=== PATIENT | male | born 1965 | race Caucasian/White ===

== ENCOUNTER → 2018-08-06 13:01 | Outpatient (CLI) | payer OTHER, SELFPAY ==
[2018-08-06 14:25] LABS: Alanine Aminotransferase 34 IU/L (21-72); Albumin 4.2 g/dL (3.5-5.0); Albumin Globulin Ratio 1.4 (1.0-2.8); Alkaline Phosphatase 63 U/L (38-126); Aspartate Aminotransferase 20 IU/L (17-59); BUN Creatinine Ratio 19.1 (6-22); Bilirubin Total 0.9 mg/dL (0.2-1.3); Blood Urea Nitrogen 21 mg/dL (9-20); Calcium 8.9 mg/dL (8.4-10.2); Carbon Dioxide 26 mmol/L (22-32); Chloride 105 mmol/L (98-107); Estimated Glomerular Filt Rate > 60.0 mL/min (>60); Glucose 91 mg/dL (70-100); HEMOLYSIS < 15 (0-50); Potassium 3.7 mmol/L (3.4-5.1); Sodium 144 mmol/L (137-145); Total Protein 7.2 g/dL (6.3-8.2)
[2018-08-06 14:56] LABS: Prostate Specific Antigen Scrn 1.16 ng/mL (0.1-4.0)
[2018-08-06 14:58] LABS: TSH w/ Reflex to FT4 0.19 uIU/mL (0.47-4.68)
[2018-08-06 15:32] LABS: Free T4, Direct Thyroxine 1.08 ng/dL (0.78-2.19)
== END ==
PROVIDERS: Visit Provider Internal Medicine
DX: E11.9 Type 2 diabetes mellitus without complications (principal); I10 Essential (primary) hypertension; E03.9 Hypothyroidism, unspecified
CPT/HCPCS: 36415; 80053; 84439; 84443; G0103

== ENCOUNTER → 2018-11-24 13:24 | Outpatient (CLI) | payer OTHER, SELFPAY ==
[2018-11-24 15:01] LABS: Adenovirus F 40/41 Not Detected (Not Detect); Astrovirus Not Detected (Not Detect); Campylobacter Not Detected (Not Detect); Clostridium difficile toxin AB Not Detected (Not Detect); Cryptosporidium Not Detected (Not Detect); Cyclospora cayetanensis Not Detected (Not Detect); Entamoeba histolytica Not Detected (Not Detect); Enteroaggregative E.coli Not Detected (Not Detect); Enteropathogenic E.coli Not Detected (Not Detect); Enterotoxigenic E.coli It/st Not Detected (Not Detect); Giardia lamblia Not Detected (Not Detect); Norovirus GI/GII Not Detected (Not Detect); Plesiomonsa shigelloides Not Detected (Not Detect); Rotavirus A Not Detected (Not Detect); Salmonella Not Detected (Not Detect); Sapovirus Not Detected (Not Detect); Shiga-like toxin-prod E.coli Not Detected (Not Detect); Shigella/Enteroinvasive E.coli Not Detected (Not Detect); Vibrio Not Detected (Not Detect); Vibrio cholerae Not Detected (Not Detect); Yersinia enterocolitica Not Detected (Not Detect)
== END ==
PROVIDERS: Visit Provider Internal Medicine
DX: R19.7 Diarrhea, unspecified (principal); R10.84 Generalized abdominal pain
CPT/HCPCS: 87507

== ENCOUNTER 2018-11-28 14:56 | Emergency (ER) | payer OTHER, SELFPAY ==
[2018-11-28 15:06] VITALS: BP 127/73; PULSE 69; RESP 16; TEMP 36.4; O2SAT 100; BMI 29.0
--- NOTE | 2018-11-28 15:20 | DI.CT.S_ITS ---
PROCEDURE: CT ABDOMEN PELVIS W CON INDICATIONS: llq pain, lower left quadrant pain TECHNIQUE: After the administration of intravenous contrast, 5 mm thick sections acquired from the diaphragm to the symphysis. 5 mm coronal and sagittal reformats were acquired. For radiation dose reduction, the following was used: automated exposure control, adjustment of mA and/or kV according to patient size. COMPARISON: None. FINDINGS: Image quality: Excellent. ABDOMEN: Lung bases: Lung bases are clear. Chronic appearing right eighth, ninth, 10th and 11th rib fractures noted. Heart size is normal. Solid organs: Liver is normal in size and enhancement. Gallbladder is contracted, but within normal limits. Biliary system is non dilated. Pancreas enhances normally. Spleen is normal in size and enhancement. No adrenal nodules. Kidneys demonstrate normal size and enhancement, without hydronephrosis. 1.3 cm left renal cyst. Peritoneum and bowel: Bowel loops demonstrate normal wall thickness and caliber. No free fluid or air. The appendix is normal. Nodes and vessels: No retroperitoneal or mesenteric adenopathy by size criteria. Aorta and inferior vena cava are normal in size. Miscellaneous: Small fat containing umbilical hernia. PELVIS: Genitourinary: Bladder wall thickness is normal. Miscellaneous: No inguinal adenopathy. Small left fat containing inguinal hernia. Bones: No suspicious bony lesions. No vertebral body compression fractures. Spine degenerative disease and facet arthropathy noted. IMPRESSION: 1. Cause of left lower quadrant pain is not identified. 2. No free fluid or free air. 3. No dilated loops of bowel. 5. No renal stone or hydronephrosis. 5. The appendix is normal. Dictated by: Myah Angel MD, PhD on 11/28/2018 at 16:54 Approved by: Myah Angel MD, PhD on 11/28/2018 at 16:58
[2018-11-28] MEDS: KETOROLAC 60 MG/2 ML VIAL 15 MG IV (15:43)
[2018-11-28] MEDS: SODIUM CHLORIDE 0.9% 1,000 ML 1000 ML IV (15:43)
[2018-11-28] MEDS: ONDANSETRON 4 MG/2 ML INJ IV (15:44)
[2018-11-28 15:48] VITALS: BP 114/69; PULSE 61; O2SAT 98
[2018-11-28 15:48] LABS: Add Manual Diff / Slide Review NO; Basophils Absolute Auto 200 /uL (0-100); Basophils Percent Auto 2.6 % (0-2); Eosinophils Absolute Auto 200 /uL (0-450); Eosinophils Percent Auto 3.2 % (2-4); Hematocrit 38.7 % (41-53); Hemoglobin 12.6 g/dL (13.5-17.5); Lymphocytes Absolute Auto 1400 /uL (1100-4500); Lymphocytes Percent Auto 22.2 % (25-40); Mean Corpuscular HGB Conc 32.6 % (30-36); Monocytes Absolute Auto 400 /uL (0-900); Monocytes Percent Auto 6.4 % (3-14); Neutrophils Absolute Auto 4200 /uL (1500-7000); Neutrophils Percent Auto 65.6 % (50-75); Platelet Count 218 X10^3/uL (150-400); Red Cell Distribution Width 13.8 % (11.6-14.8); White Blood Cell Count 6.4 X10^3/uL (4.5-11.0)
[2018-11-28 15:58] LABS: Alanine Aminotransferase 31 IU/L (21-72); Albumin 4.2 g/dL (3.5-5.0); Albumin Globulin Ratio 1.4 (1.0-2.8); Alkaline Phosphatase 64 U/L (38-126); Aspartate Aminotransferase 22 IU/L (17-59); Bilirubin Total 0.4 mg/dL (0.2-1.3); Blood Urea Nitrogen 15 mg/dL (9-20); Calcium 8.5 mg/dL (8.4-10.2); Carbon Dioxide 24 mmol/L (22-32); Chloride 108 mmol/L (98-107); Estimated Glomerular Filt Rate > 60.0 mL/min (>60); Globulin 3.1 g/dL (1.7-4.1); Glucose 103 mg/dL (70-100); HEMOLYSIS < 15 (0-50); Lipase 175 U/L (23-300); Potassium 3.7 mmol/L (3.4-5.1); Sodium 142 mmol/L (137-145); Total Protein 7.3 g/dL (6.3-8.2)
--- NOTE | 2018-11-28 16:00 | ED.ABDPAIN ---
HPI - Abdominal Pain General Chief Complaint: Abdominal Pain Stated Complaint: severe abdominal cramping with diarrhea Time Seen by Provider: 11/28/18 15:03 Source: patient Mode of arrival: ambulatory Limitations: no limitations History of Present Illness HPI narrative: Patient is a 53-year-old male who presents with abdominal pain left lower quadrant for a week and a half. He has been having ongoing diarrhea for about a month. He actually had an outpatient stool sample this week which was negative. He denies any fever or chills. He feels nauseated. No vomiting. MD complaint: abdominal pain Onset (ago): week(s) Pain Consistency: intermittent Location: LLQ Severity: moderate Quality: cramping Radiation: none Migration to: no migration Relieving factors: nothing Exacerbating factors: nothing Related Data Home Medications Medication Instructions Recorded Confirmed levothyroxine 175 mcg tablet 175 mcg PO DAILY 10/28/18 10/28/18 lisinopril 2.5 mg tablet 2.5 mg PO DAILY 10/28/18 10/28/18 omeprazole 20 mg capsule,delayed 20 mg PO DAILY 10/28/18 10/28/18 release topiramate XR 50 mg 50 mg PO DAILY 10/28/18 10/28/18 capsule,extended release 24 hr Previous Rx's Medication Instructions Recorded dicyclomine 20 mg PO QID PRN #30 tab 11/28/18 Allergies Allergy/AdvReac Type Severity Reaction Status Date / Time No Known Drug Allergies Allergy Verified 11/28/18 15:06 Review of Systems Review of Systems GENERAL: Denies chills, fatigue, malaise, fever, sweats, travel HEENT: Denies sinus pain, ear pain, sore throat, difficulty swallowing, neck pain RESPIRATORY: Denies dyspnea, cough, wheezing, hemoptysis, sputum. CARDIOVASCULAR: Denies chest pain, palpitations, orthopnea, edema GASTROINTESTINAL: See HPI : Denies dysuria, frequency, incontinence, hematuria, urinary retention, flank pain. MUSCULOSKELETAL: Denies weakness, joint pain, or bony pain SKIN: No rash, no erythema, no pruritus NEUROLOGIC: Denies weakness, dizziness, headache, numbness, change in speech, confusion PSYCHIATRIC: No concerning psychosocial issues. 12 point review of systems is negative except for those stated above and HPI [facility] Social History Smoking Status: Former smoker Exam Initial Vital Signs Initial Vital Signs: Vital Signs Temperature 97.5 F L 11/28/18 15:06 Pulse Rate 69 11/28/18 15:06 Respiratory Rate 16 11/28/18 15:06 Blood Pressure 127/73 11/28/18 15:06 Pulse Oximetry 100 11/28/18 15:06 GENERAL: Alert oriented x3 HEENT: Head atraumatic,EOMI, pupils reactive CARDIOVASCULAR: Regular rate and rhythm without murmurs, rubs or gallops. RESPIRATORY: Breath sounds equal bilaterally, no wheezes rales or rhonchi. ABDOMEN: Soft, mild lower left lower quadrant pain no guarding or rebound EXTREMITIES: Normal range of motion, no clubbing or edema. Neurovascularly intact NEUROLOGICAL: Alert and oriented x4.Normal gait and speech. Cranial nerves II through XII grossly intact. SKIN: Warm, dry, no laceration, no petechiae, no rashes or lesions. Course Orders Ordered: ED Orders 11/28/18 15:20 CT abdomen pelvis w con Stat 11/28/18 15:40 Complete Blood Count AUTO DIFF Stat Comprehensive Metabolic Panel Stat Lipase Stat Sodium Chloride (Normal Saline 0.9%) 1,000 mls @ 1,000 mls/hr IV CONT FABIENNE Last Admin: 11/28/18 15:43 Dose: 1,000 mls/hr Discontinued Medications Ketorolac Tromethamine (Toradol) 15 mg IV NOW ONE Stop: 11/28/18 15:20 Last Admin: 11/28/18 15:43 Dose: 15 mg Ondansetron HCl (Zofran) 4 mg IV NOW ONE Stop: 11/28/18 15:20 Last Admin: 11/28/18 15:44 Dose: 4 mg Vital Signs - 8 hr 11/28/18 15:06 11/28/18 15:48 11/28/18 17:00 Temperature 97.5 F L Pulse Rate 69 61 63 Respiratory Rate 16 15 Blood Pressure 127/73 Blood Pressure [Right Arm] 114/69 115/70 Pulse Oximetry 100 98 100 MDM - Abdominal Pain Lab Data Attestation: I reviewed the patient's lab results. Result diagrams: 11/28/18 15:40 11/28/18 15:40 Lab Results 11/28/18 11/28/18 Range/Units 15:40 15:40 WBC 6.4 (4.5-11.0) X10^3/uL RBC 4.50 (4.5-5.9) X10^6/uL Hgb 12.6 L (13.5-17.5) g/dL Hct 38.7 L (41-53) % MCV 86.0 (80-100) fL MCH 28.0 (26-34) PG MCHC 32.6 (30-36) % RDW 13.8 (11.6-14.8) % Plt Count 218 (150-400) X10^3/uL Neut % (Auto) 65.6 (50-75) % Lymph % (Auto) 22.2 L (25-40) % [place] % (Auto) 6.4 (3-14) % Eos % (Auto) 3.2 (2-4) % Baso % (Auto) 2.6 H (0-2) % Neut # (Auto) 4200 (7919-0120) /uL Lymph # (Auto) 1400 (6936-0891) /uL [place] # (Auto) 400 (0-900) /uL Eos # (Auto) 200 (0-450) /uL Baso # (Auto) 200 H (0-100) /uL Sodium 142 (137-145) mmol/L Potassium 3.7 (3.4-5.1) mmol/L Chloride 108 H (98-107) mmol/L Carbon Dioxide 24 (22-32) mmol/L BUN 15 (9-20) mg/dL Creatinine 1.00 (0.66-1.25) mg/dL Estimated GFR > 60.0 (>60) mL/min BUN/Creatinine Ratio 15.0 (6-22) Glucose 103 H (70-100) mg/dL Calcium 8.5 (8.4-10.2) mg/dL Total Bilirubin 0.4 (0.2-1.3) mg/dL AST 22 (17-59) IU/L ALT 31 (21-72) IU/L Alkaline Phosphatase 64 (38-126) U/L Total Protein 7.3 (6.3-8.2) g/dL Albumin 4.2 (3.5-5.0) g/dL Globulin 3.1 (1.7-4.1) g/dL Albumin/Globulin Ratio 1.4 (1.0-2.8) Lipase 175 (23-300) U/L Imaging Data CT scan - abdomen: Radiologist's impression: PROCEDURE: CT ABDOMEN PELVIS W CON INDICATIONS: llq pain, lower left quadrant pain TECHNIQUE: After the administration of intravenous contrast, 5 mm thick sections acquired from the diaphragm to the symphysis. 5 mm coronal and sagittal reformats were acquired. For radiation dose reduction, the following was used: automated exposure control, adjustment of mA and/or kV according to patient size. COMPARISON: None. FINDINGS: Image quality: Excellent. ABDOMEN: Lung bases: Lung bases are clear. Chronic appearing right eighth, ninth, 10th and 11th rib fractures noted. Heart size is normal. Solid organs: Liver is normal in size and enhancement. Gallbladder is contracted, but within normal limits. Biliary system is non dilated. Pancreas enhances normally. Spleen is normal in size and enhancement. No adrenal nodules. Kidneys demonstrate normal size and enhancement, without hydronephrosis. 1.3 cm left renal cyst. Peritoneum and bowel: Bowel loops demonstrate normal wall thickness and caliber. No free fluid or air. The appendix is normal. Nodes and vessels: No retroperitoneal or mesenteric adenopathy by size criteria. Aorta and inferior vena cava are normal in size. Miscellaneous: Small fat containing umbilical hernia. PELVIS: Genitourinary: Bladder wall thickness is normal. Miscellaneous: No inguinal adenopathy. Small left fat containing inguinal hernia. Bones: No suspicious bony lesions. No vertebral body compression fractures. Spine degenerative disease and facet arthropathy noted. IMPRESSION: 1. Cause of left lower quadrant pain is not identified. 2. No free fluid or free air. 3. No dilated loops of bowel. 5. No renal stone or hydronephrosis. 5. The appendix is normal. Dictated by: Myah Angel MD, PhD on 11/28/2018 at 16:54 MDM Narrative Medical decision making narrative: No source of abdominal pain found. Patient has no leukocytosis. Pain definitely seems to come intermittently and spasm like. Will try course of Bentyl, I also recommend ammonium. Stool sample was negative for any infection. Follow-up with PCP. Discharge Plan Departure Patient Disposition: Home Clinical Impression: Abdominal pain Discharge Date/Time: 11/28/18 17:31 Instructions: DI for Abdominal Pain-Adult Activity Restrictions/Additional Instructions: *You have been diagnosed with abdominal pain *What to do: At this time stool sample is negative blood work is reassuring abdominal CT does not show any source for abdominal pain. May still require further outpatient evaluation. *Continue to take medications as directed Bentyl 20 mg 4 times a day for 1 week Tylenol 650 mg every 4-6 hours if needed for mild pain Imodium as directed for diarrhea *Follow up with your primary care provider in 2-3 days *Return to ER if you should have fever, increasing pain or any new, worsening or concerning symptoms Prescriptions: New dicyclomine 20 mg tablet 20 mg PO QID PRN (Reason: abdominal pain) Qty: 30 RF: 0 No Action levothyroxine 175 mcg tablet 175 mcg PO DAILY RF: 0 omeprazole 20 mg capsule,delayed release(DR/EC) 20 mg PO DAILY RF: 0 lisinopril 2.5 mg tablet 2.5 mg PO DAILY RF: 0 topiramate 50 mg capsule,extended release 24hr 50 mg PO DAILY RF: 0 Referrals: Sharad Muñoz MD [Physician] -
[2018-11-28 17:00] VITALS: BP 115/70; PULSE 63; RESP 15; O2SAT 100
[2018-11-28 17:31] VITALS: BP 115/70; PULSE 60; RESP 20; O2SAT 98
--- NOTE | 2018-12-02 11:13 | PC.NURSE ---
PT received normal saline started at 1543, completed at 1640, pt Received at total of 1000mls.
== END 2018-11-28 17:31 | disposition home or self-care (01) ==
PROVIDERS: Emergency Provider Emergency Medicine
DX: R10.9 Unspecified abdominal pain (principal)
CPT/HCPCS: 36591; 74177; 80053; 83690; 85025; 96361; 96374; 96375; 99282; 99284; J1885; J2405; Q9967

== ENCOUNTER → 2018-12-03 12:09 | Outpatient (CLI) | payer OTHER, SELFPAY ==
--- NOTE | 2018-12-03 | DI.RAD.S_ITS ---
PROCEDURE: XR CHEST 2V INDICATIONS: DYSPNEA TECHNIQUE: 2 views of the chest were acquired. COMPARISON: [facility], CT, CT ABDOMEN PELVIS W CON, 11/28/2018, 15:53. FINDINGS: Surgical changes and devices: Partial visualized cervical spine fixation hardware. Lungs and pleura: No pleural effusions or pneumothorax. Lungs are clear. Mediastinum: Mediastinal contours are normal. Heart size is normal. Bones and chest wall: No suspicious bony abnormalities. Right rib fractures as before. Soft tissues appear unremarkable. IMPRESSION: No acute disease. Dictated by: Mahin Tee M.D. on 12/03/2018 at 13:13 Approved by: Mahin Tee M.D. on 12/03/2018 at 13:24
== END ==
PROVIDERS: PCP Internal Medicine; Visit Provider Internal Medicine
DX: R06.00 Dyspnea, unspecified (principal)
CPT/HCPCS: 71046

== ENCOUNTER → 2018-12-14 13:24 | Outpatient (CLI) | payer OTHER, SELFPAY | PROVIDERS: PCP Internal Medicine; Visit Provider Internal Medicine | DX: K29.00 Acute gastritis without bleeding (principal) | CPT/HCPCS: 86677 ==

== ENCOUNTER → 2019-03-02 10:02 | Outpatient (CLI) | payer OTHER, SELFPAY ==
[2019-03-02 11:07] LABS: Add Manual Diff / Slide Review NO; Basophils Absolute Auto 100 /uL (0-100); Eosinophils Absolute Auto 200 /uL (0-450); Hematocrit 40.9 % (41-53); Hemoglobin 13.3 g/dL (13.5-17.5); Lymphocytes Absolute Auto 1800 /uL (1100-4500); Lymphocytes Percent Auto 29.7 % (25-40); Mean Corpuscular HGB Conc 32.4 % (30-36); Mean Corpuscular Hemoglobin 28.4 PG (26-34); Mean Corpuscular Volume 87.6 fL (80-100); Monocytes Absolute Auto 500 /uL (0-900); Monocytes Percent Auto 8.1 % (3-14); Neutrophils Absolute Auto 3400 /uL (1500-7000); Neutrophils Percent Auto 56.2 % (50-75); Platelet Count 186 X10^3/uL (150-400); Red Blood Cell Count 4.67 X10^6/uL (4.5-5.9); Red Cell Distribution Width 14.2 % (11.6-14.8); White Blood Cell Count 6.1 X10^3/uL (4.5-11.0)
[2019-03-02 11:13] LABS: Blood Urea Nitrogen 17 mg/dL (9-20); Calcium 9.3 mg/dL (8.4-10.2); Carbon Dioxide 27 mmol/L (22-32); Chloride 105 mmol/L (98-107); Estimated Glomerular Filt Rate > 60.0 mL/min (>60); Glucose 78 mg/dL (70-100); HEMOLYSIS < 15 (0-50); Sodium 141 mmol/L (137-145)
[2019-03-02 11:45] LABS: Free T3, Triiodothyronine Free 3.81 pg/mL (2.77-5.27)
[2019-03-02 11:58] LABS: Thyroid Stimulating Hormone 0.03 uIU/mL (0.47-4.68)
== END ==
PROVIDERS: PCP Internal Medicine; Visit Provider Internal Medicine
DX: E03.9 Hypothyroidism, unspecified (principal); K29.00 Acute gastritis without bleeding; I10 Essential (primary) hypertension
CPT/HCPCS: 36415; 80048; 84439; 84443; 84481; 85025

== ENCOUNTER → 2019-05-19 13:44 | Outpatient (CLI) | payer OTHER, SELFPAY ==
--- NOTE | 2019-05-19 | DI.RAD.S_ITS ---
PROCEDURE: XR KNEE LT 3V INDICATIONS: BILAT KNEE PAIN TECHNIQUE: 3 views of the knee were acquired. COMPARISON: None. FINDINGS: Bones: No fractures or dislocations. No suspicious bony lesions. Soft tissues: No joint effusion. No suspicious soft tissue calcifications. IMPRESSION: Normal for age, source of current left knee pain symptoms is not seen. Dictated by: Terrence Rosales M.D. on 05/19/2019 at 14:14 Approved by: Terrence Rosales M.D. on 05/19/2019 at 14:14
--- NOTE | 2019-05-19 | DI.RAD.S_ITS ---
PROCEDURE: XR KNEE RT 3V INDICATIONS: BILAT KNEE PAIN TECHNIQUE: 3 views of the knee were acquired. COMPARISON: None. FINDINGS: Bones: No fractures or dislocations. No suspicious bony lesions. Soft tissues: No joint effusion. No suspicious soft tissue calcifications. IMPRESSION: Normal for age, source of current knee pain symptoms is not seen. Dictated by: Terrence Rosales M.D. on 05/19/2019 at 14:14 Approved by: Terrence Rosales M.D. on 05/19/2019 at 14:14
== END ==
PROVIDERS: PCP Internal Medicine; Visit Provider Internal Medicine
DX: M25.562 Pain in left knee (principal); M25.561 Pain in right knee
CPT/HCPCS: 73562

== ENCOUNTER 2020-05-15 11:50 | Emergency (ER) | payer OTHER, SELFPAY ==
[2020-05-15] VITALS (13 sets, daily range): BP systolic 120–130; BP diastolic 74–86; PULSE 69–92; RESP 10–37; O2SAT 100; BMI 27.7
--- NOTE | 2020-05-15 13:51 | DI.RAD.S_ITS ---
PROCEDURE: XR CHEST 1V INDICATIONS: chest pain TECHNIQUE: One view of the chest was acquired. COMPARISON: [facility], CR, XR CHEST 2V, 12/03/2018, 12:38. FINDINGS: Surgical changes and devices: None. Lungs and pleura: Lungs are clear. No pleural effusions or pneumothorax. Mediastinum: Mediastinal contours appear normal. Heart size is normal. Bones and chest wall: No suspicious bony lesions. Multiple rib deformities on the right hemithorax are similar to the prior study. Overlying soft tissues appear unremarkable. IMPRESSION: Stable chest. No acute cardiopulmonary process is evident. Dictated by: David Nuno M.D. on 05/15/2020 at 13:24 Approved by: David Nuno M.D. on 05/15/2020 at 13:25
--- NOTE | 2020-05-15 13:59 | ED_ITS ---
HPI - Neuro Symptoms/Deficit <ARABELLA Haney - Last Filed: 05/15/20 21:00> General Chief Complaint: Neuro Symptoms/Deficit Stated Complaint: SOB, Foggy Head, Thinks Chemical Reaction Time Seen by Provider: 05/15/20 13:27 History of Present Illness HPI Narrative: 55yo male presents to the emergency department for shortness of breath, cough, and chest pain. 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 He was working today in a small bathroom with for ventilation when he felt dizzy and flushed, patient when outside to get fresh air and felt short of breath. He states he had a coughing fit and coughed up mucus. He did not cough up any blood. Patient was told to go home due to coughing. Once patient presented to the emergency department he developed a 6/10 sharp stabbing chest pain that was partially relieved when he laid on his left side. Patient states pain was worse with lying on his back. Denies any history of [place], states he had pericarditis approximately 20 years ago. Patient reports intermittent nausea. Patient denies any respiratory history. Patient denies any fevers, chills, vomiting, dizziness at this time, abdominal pain, or other concerns. On Anticoagulants: No Related Data Home Medications Medication Instructions Recorded Confirmed levothyroxine 150 mcg capsule 150 mcg PO DAILY 04/28/19 05/15/20 cyclobenzaprine 10 mg PO TID PRN 05/15/20 05/15/20 tramadol 50 - 100 mg PO TID PRN 05/15/20 05/15/20 Allergies Allergy/AdvReac Type Severity Reaction Status Date / Time No Known Drug Allergies Allergy Verified 04/28/19 10:09 Review of Systems <ARABELLA Haney - Last Filed: 05/15/20 21:00> Review of Systems Narrative: REVIEW OF SYSTEMS: GENERAL: Denies fever or chills. HENT: No head trauma. EYES: No vision changes. CARDIOVASCULAR: Reports chest pain, see HPI. RESPIRATORY: No shortness of breath or cough. GASTROINTESTINAL: No nausea or vomiting. GENITOURINARY: No flank pain or dysuria. MUSCULOSKELETAL: No pain, weakness, or deformities. INTEGUMENTARY: No rash, lesions, or pruritus. NEURO: No numbness or tingling. PSYCH: No behavior or mood changes. Patient History <ARABELLA Haney - Last Filed: 05/15/20 21:00> Medical History Chronic back pain (Acute) Chronic knee pain (Acute) Fatigue (Chronic ~10/2018) Flexor tendon laceration of right hand with open wound (Inactive) Laceration of finger of right hand (Inactive) Obstructive sleep apnea (Chronic) Social History Smoking Status: Former smoker Smoking Status: Former smoker alcohol intake frequency: 0-2 drinks per day Substance Use Type: does not use Exam <ARABELLA Haney - Last Filed: 05/15/20 21:00> Initial Vital Signs Initial Vital Signs: Vital Signs Pulse Rate 92 H 05/15/20 11:58 Respiratory Rate 18 05/15/20 11:58 Blood Pressure 120/86 05/15/20 11:58 Pulse Oximetry 100 05/15/20 11:58 PHYSICAL EXAMINATION: GENERAL: Well groomed, alert, and cooperative. Answers questions promptly and appropriately. Vital signs noted. HENT: Normocephalic, atraumatic. Ear canals patent. Oral mucosa is pink and moist. EYES: Conjunctiva pink, sclera white, no periorbital swelling. CHEST: Normal to inspection and without deformities. CARDIOVASCULAR: S1 and S2 sounds normal. Regular rate and rhythm, no murmurs, clicks, or bruits. No pedal edema. RESPIRATORY: Normal respiratory rate, trachea midline, airway patent. No stridor, nasal flaring or accessory muscle use. Lungs are clear in all holly without wheeze, rhonchi, or crackles. No cough observed. Patient able to ambulate without respiratory distress. GASTROINTESTINAL: Bowel sounds normoactive. Abdomen is soft and non-tender. No organomegaly. MUSCULOSKELETAL: Normal gait and coordination. Equal tone and mass bilaterally. EXTREMITIES: CMS intact. Moves all extremities. SKIN: Warm, dry, soft, appropriate color for ethnicity. No lesions, rashes, or wounds. NEURO: Alert and Oriented X 3. Good coordination. No ataxia, or sensory d eficits, or cognitive issues. PSYCH: Appropriate affect and mood. <Dara Sanchez MD - Last Filed: 06/02/20 18:05> Initial Vital Signs Initial Vital Signs: Vital Signs Pulse Rate 92 H 05/15/20 11:58 Respiratory Rate 18 05/15/20 11:58 Blood Pressure 120/86 05/15/20 11:58 Pulse Oximetry 100 05/15/20 11:58 Course <Rashmi Rushing [employer] CHIEF - Last Filed: 05/15/20 21:00> Course Course Narrative: Poison control was consulted via nursing, recommended supportive care and oxygen. Oxygen was placed on patient, patient reported he immediately felt better within a few minutes. With an five to ten minutes, chest pain completely resolved, patient no longer felt short of breath. Upon discharge, patient was able to ambulate without shortness of breath or feelings of dizziness. Orders Ordered: Discontinued Medications Ondansetron HCl (Zofran) 4 mg IV NOW ONE Stop: 05/15/20 14:03 Last Admin: 05/15/20 14:21 Dose: 4 mg Documented by: ESTEBAN Aguirre Consultation #1: Patient staffed with Dr. Sanchez discussed test, test results, and plan of care. Vital Signs Vital signs: Vital Signs - 8 hr 05/15/20 13:51 05/15/20 14:00 05/15/20 14:15 Pulse Rate 73 70 72 Respiratory Rate 24 23 33 H Blood Pressure 127/82 Pulse Oximetry 100 100 100 05/15/20 14:30 05/15/20 14:45 05/15/20 15:00 Pulse Rate 70 71 72 Respiratory Rate 27 H 24 10 L Blood Pressure 130/74 Pulse Oximetry 100 100 100 05/15/20 15:15 05/15/20 15:30 05/15/20 15:45 Pulse Rate 69 72 78 Respiratory Rate 37 H 22 15 Blood Pressure Pulse Oximetry 100 100 100 05/15/20 16:00 05/15/20 16:12 05/15/20 16:47 Pulse Rate 76 75 80 Respiratory Rate 22 24 26 H Blood Pressure 129/81 123/85 Pulse Oximetry 100 100 100 <Dara Sanchez MD - Last Filed: 06/02/20 18:05> Orders Ordered: Discontinued Medications Ondansetron HCl (Zofran) 4 mg IV NOW ONE Stop: 05/15/20 14:03 Last Admin: 05/15/20 14:21 Dose: 4 mg Documented by: ESTEBAN Vital Signs Vital signs: Vital Signs - 8 hr 05/15/20 13:51 05/15/20 14:00 05/15/20 14:15 Pulse Rate 73 70 72 Respiratory Rate 24 23 33 H Blood Pressure 127/82 Pulse Oximetry 100 100 100 05/15/20 14:30 05/15/20 14:45 05/15/20 15:00 Pulse Rate 70 71 72 Respiratory Rate 27 H 24 10 L Blood Pressure 130/74 Pulse Oximetry 100 100 100 05/15/20 15:15 05/15/20 15:30 05/15/20 15:45 Pulse Rate 69 72 78 Respiratory Rate 37 H 22 15 Blood Pressure Pulse Oximetry 100 100 100 05/15/20 16:00 05/15/20 16:12 05/15/20 16:47 Pulse Rate 76 75 80 Respiratory Rate 22 24 26 H Blood Pressure 129/81 123/85 Pulse Oximetry 100 100 100 MDM - Neuro Symptoms/Deficit <ARABELLA Haney - Last Filed: 05/15/20 21:00> Medical Records Attestation: I reviewed the patient's medical records. Lab Data Attestation: I reviewed the patient's lab results. Result diagrams: 05/15/20 13:50 05/15/20 13:50 Labs: Lab Results 05/15/20 05/15/20 05/15/20 Range/Units 13:50 13:50 13:50 WBC 7.4 (4.5-11.0) X10^3/uL RBC 4.44 L (4.5-5.9) X10^6/uL Hgb 12.8 L (13.5-17.5) g/dL Hct 38.2 L (41-53) % MCV 86.1 (80-100) fL MCH 28.8 (26-34) PG MCHC 33.5 (30-36) % RDW 14.2 (11.6-14.8) % Plt Count 183 (150-400) X10^3/uL Neut % (Auto) 56.0 (50-75) % Lymph % (Auto) 28.7 (25-40) % [place] % (Auto) 8.8 (3-14) % Eos % (Auto) 4.2 H (2-4) % Baso % (Auto) 2.3 H (0-2) % Neut # (Auto) 4100 (4775-7027) /uL Lymph # (Auto) 2100 (7181-8752) /uL [place] # (Auto) 600 (0-900) /uL Eos # (Auto) 300 (0-450) /uL Baso # (Auto) 200 H (0-100) /uL PT 12.3 (10.1-12.7) SECONDS INR 1.1 (0.9-1.3) APTT 33 (26.4-36.2) SECONDS Sodium 140 (137-145) mmol/L Potassium 3.8 (3.4-5.1) mmol/L Chloride 107 (98-107) mmol/L Carbon Dioxide 25 (22-32) mmol/L BUN 18 (9-20) mg/dL Creatinine 0.90 (0.66-1.25) mg/dL Estimated GFR > 60.0 (>60) mL/min BUN/Creatinine Ratio 20.0 (6-22) Glucose 94 (70-100) mg/dL Calcium 9.5 (8.4-10.2) mg/dL Total Bilirubin 0.4 (0.2-1.3) mg/dL AST 19 (17-59) IU/L ALT 16 (<50) IU/L Alkaline Phosphatase 72 (38-126) U/L Total Creatine Kinase 100 (55-170) U/L CK-MB (CK-2) TNP CK-MB (CK-2) Rel Index TNP Troponin I < 0.012 (0.01-0.034) ng/mL NT-Pro-B Natriuret Pep (<125) pg/mL Total Protein 7.7 (6.3-8.2) g/dL Albumin 4.4 (3.5-5.0) g/dL Globulin 3.3 (1.7-4.1) g/dL Albumin/Globulin Ratio 1.3 (1.0-2.8) Lipase 153 (23-300) U/L 05/15/20 05/15/20 Range/Units 13:50 15:54 WBC (4.5-11.0) X10^3/uL RBC (4.5-5.9) X10^6/uL Hgb (13.5-17.5) g/dL Hct (41-53) % MCV (80-100) fL MCH (26-34) PG MCHC (30-36) % RDW (11.6-14.8) % Plt Count (150-400) X10^3/uL Neut % (Auto) (50-75) % Lymph % (Auto) (25-40) % [place] % (Auto) (3-14) % Eos % (Auto) (2-4) % Baso % (Auto) (0-2) % Neut # (Auto) (1323-1623) /uL Lymph # (Auto) (4721-5791) /uL [place] # (Auto) (0-900) /uL Eos # (Auto) (0-450) /uL Baso # (Auto) (0-100) /uL PT (10.1-12.7) SECONDS INR (0.9-1.3) APTT (26.4-36.2) SECONDS Sodium (137-145) mmol/L Potassium (3.4-5.1) mmol/L Chloride (98-107) mmol/L Carbon Dioxide (22-32) mmol/L BUN (9-20) mg/dL Creatinine (0.66-1.25) mg/dL Estimated GFR (>60) mL/min BUN/Creatinine Ratio (6-22) Glucose (70-100) mg/dL Calcium (8.4-10.2) mg/dL Total Bilirubin (0.2-1.3) mg/dL AST (17-59) IU/L ALT (<50) IU/L Alkaline Phosphatase (38-126) U/L Total Creatine Kinase (55-170) U/L CK-MB (CK-2) CK-MB (CK-2) Rel Index Troponin I < 0.012 (0.01-0.034) ng/mL NT-Pro-B Natriuret Pep 24 (<125) pg/mL Total Protein (6.3-8.2) g/dL Albumin (3.5-5.0) g/dL Globulin (1.7-4.1) g/dL Albumin/Globulin Ratio (1.0-2.8) Lipase (23-300) U/L Imaging Data Chest x-ray: Radiologist's Impression: [address] [address] XRay Report Signed Patient: Maxim Garcia WMR#: [id number] : 1965Acct:[id number] Age/Sex: 55 / MDate of Service: 05/15/20 Loc: ED Accession Number: [id number] Procedure: XR chest 1V Ordering Provider: Rashmi Rushing PROCEDURE: XR CHEST 1V INDICATIONS: chest pain TECHNIQUE: One view of the chest was acquired. COMPARISON: [facility], XR CHEST 2V, 12/03/2018, 12:38. FINDINGS: Surgical changes and devices: None. Lungs and pleura: Lungs are clear. No pleural effusions or pneumothorax. Mediastinum: Mediastinal contours appear normal. Heart size is normal. Bones and chest wall: No suspicious bony lesions. Multiple rib deformities on the right hemithorax are similar to the prior study. Overlying soft tissues appear unremarkable. IMPRESSION: Stable chest. No acute cardiopulmonary process is evident. Dictated by: David Nuno M.D. on 05/15/2020 at 13:24 Approved by: David Nuno M.D. on 05/15/2020 at 13:25 ECG Data Interpretation: 1203: Normal sinus rhythm, rate 79, NV interval 172, QTC 396. No ST elevation or ST depression. No T-wave abnormality. EKG also viewed by Dr. Sanchez per protocol. 1540: Normal sinus rhythm, rate 68, NV interval 178, QTC [address] elevation or ST depression. No ectopy. No T-wave abnormality. EKG also viewed Dr. Sanchez per protocol. 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 I suspect patient's symptoms are most likely caused by chemical inhalation given chemical exposure, patient was not wearing a mask, and was working in a low ventilation room. Patient also reported immediate improvement after administration of oxygen. Less likely ACS as serial troponins and EKGs were non-remarkable, chest x-ray without abnormality. Less likely infection due to clear lung sounds, no wheezing, no pneumonia seen on x-ray, normal white count, afebrile, non tachycardic. Less likely reactive airway disease due to lack of wheezing, improvement with oxygen only. Poison control was consulted which recommend supportive care as well. Patient was encouraged to follow up with his PCP in the next 1-2 days for further evaluation. He was encouraged to wear a mask and work in a well ventilated area when working with chemicals. Work note was given per request. Strict return precautions given for new or worsening symptoms. Patient agreed to plan of care verbalized understanding. <Dara Sanchez MD - Last Filed: 06/02/20 18:05> Lab Data Labs: Lab Results 05/15/20 05/15/20 05/15/20 Range/Units 13:50 13:50 13:50 WBC 7.4 (4.5-11.0) X10^3/uL RBC 4.44 L (4.5-5.9) X10^6/uL Hgb 12.8 L (13.5-17.5) g/dL Hct 38.2 L (41-53) % MCV 86.1 (80-100) fL MCH 28.8 (26-34) PG MCHC 33.5 (30-36) % RDW 14.2 (11.6-14.8) % Plt Count 183 (150-400) X10^3/uL Neut % (Auto) 56.0 (50-75) % Lymph % (Auto) 28.7 (25-40) % [place] % (Auto) 8.8 (3-14) % Eos % (Auto) 4.2 H (2-4) % Baso % (Auto) 2.3 H (0-2) % Neut # (Auto) 4100 (8102-3100) /uL Lymph # (Auto) 2100 (0392-6985) /uL [place] # (Auto) 600 (0-900) /uL Eos # (Auto) 300 (0-450) /uL Baso # (Auto) 200 H (0-100) /uL PT 12.3 (10.1-12.7) SECONDS INR 1.1 (0.9-1.3) APTT 33 (26.4-36.2) SECONDS Sodium 140 (137-145) mmol/L Potassium 3.8 (3.4-5.1) mmol/L Chloride 107 (98-107) mmol/L Carbon Dioxide 25 (22-32) mmol/L BUN 18 (9-20) mg/dL Creatinine 0.90 (0.66-1.25) mg/dL Estimated GFR > 60.0 (>60) mL/min BUN/Creatinine Ratio 20.0 (6-22) Glucose 94 (70-100) mg/dL Calcium 9.5 (8.4-10.2) mg/dL Total Bilirubin 0.4 (0.2-1.3) mg/dL AST 19 (17-59) IU/L ALT 16 (<50) IU/L Alkaline Phosphatase 72 (38-126) U/L Total Creatine Kinase 100 (55-170) U/L CK-MB (CK-2) TNP CK-MB (CK-2) Rel Index TNP Troponin I < 0.012 (0.01-0.034) ng/mL NT-Pro-B Natriuret Pep (<125) pg/mL Total Protein 7.7 (6.3-8.2) g/dL Albumin 4.4 (3.5-5.0) g/dL Globulin 3.3 (1.7-4.1) g/dL Albumin/Globulin Ratio 1.3 (1.0-2.8) Lipase 153 (23-300) U/L 05/15/20 05/15/20 Range/Units 13:50 15:54 WBC (4.5-11.0) X10^3/uL RBC (4.5-5.9) X10^6/uL Hgb (13.5-17.5) g/dL Hct (41-53) % MCV (80-100) fL MCH (26-34) PG MCHC (30-36) % RDW (11.6-14.8) % Plt Count (150-400) X10^3/uL Neut % (Auto) (50-75) % Lymph % (Auto) (25-40) % [place] % (Auto) (3-14) % Eos % (Auto) (2-4) % Baso % (Auto) (0-2) % Neut # (Auto) (8273-3333) /uL Lymph # (Auto) (9705-1501) /uL [place] # (Auto) (0-900) /uL Eos # (Auto) (0-450) /uL Baso # (Auto) (0-100) /uL PT (10.1-12.7) SECONDS INR (0.9-1.3) APTT (26.4-36.2) SECONDS Sodium (137-145) mmol/L Potassium (3.4-5.1) mmol/L Chloride (98-107) mmol/L Carbon Dioxide (22-32) mmol/L BUN (9-20) mg/dL Creatinine (0.66-1.25) mg/dL Estimated GFR (>60) mL/min BUN/Creatinine Ratio (6-22) Glucose (70-100) mg/dL Calcium (8.4-10.2) mg/dL Total Bilirubin (0.2-1.3) mg/dL AST (17-59) IU/L ALT (<50) IU/L Alkaline Phosphatase (38-126) U/L Total Creatine Kinase (55-170) U/L CK-MB (CK-2) CK-MB (CK-2) Rel Index Troponin I < 0.012 (0.01-0.034) ng/mL NT-Pro-B Natriuret Pep 24 (<125) pg/mL Total Protein (6.3-8.2) g/dL Albumin (3.5-5.0) g/dL Globulin (1.7-4.1) g/dL Albumin/Globulin Ratio (1.0-2.8) Lipase (23-300) U/L Discharge Plan Departure Patient Disposition: Home Clinical Impression: Exposure to chemical inhalation Discharge Date/Time: 05/15/20 16:48 Activity Restrictions/Additional Instructions: Thank you for entrusting me with your care today. As discussed, your chest x- ray, EKG, and laboratory work are non-remarkable. I suspect that your symptoms are most likely caused from inhalation of chemicals. I recommend wearing a chemical approved mask when working with chemicals. 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 It is important that you follow-up with your primary care provider in the next 1-2 weeks for further evaluation as you can developed later inflammation from in halation of these chemicals. Please given a call today or tomorrow to schedule an appointment. Return emergency department for any new or worsening symptoms such as chest pain, shortness of breath, syncope, dizziness, or any other concerns. Prescriptions: No Action cyclobenzaprine 10 mg Tablet 10 mg PO TID PRN (Reason: Back Pain) RF: 0 tramadol 50 mg tablet 50 - 100 mg PO TID PRN (Reason: Pain (Scale Score 7-10)) RF: 0 levothyroxine 150 mcg capsule 150 mcg PO DAILY RF: 0 Referrals: Sharad Muñoz MD [Primary Care Provider] - Stand Alone Forms: Work Release Note <Dara Sanchez MD - Last Filed: 06/02/20 18:05> Cosign ED Attending Cosignature Attestation: I was immediately available in the department for consultation throughout this patient's visit. I agree with documentation as above. Dara Sanchez MD
[2020-05-15 14:03] LABS: Add Manual Diff / Slide Review NO; Basophils Absolute Auto 200 /uL (0-100); Basophils Percent Auto 2.3 % (0-2); Eosinophils Absolute Auto 300 /uL (0-450); Eosinophils Percent Auto 4.2 % (2-4); Hematocrit 38.2 % (41-53); Hemoglobin 12.8 g/dL (13.5-17.5); Lymphocytes Absolute Auto 2100 /uL (1100-4500); Lymphocytes Percent Auto 28.7 % (25-40); Mean Corpuscular HGB Conc 33.5 % (30-36); Mean Corpuscular Hemoglobin 28.8 PG (26-34); Mean Corpuscular Volume 86.1 fL (80-100); Monocytes Absolute Auto 600 /uL (0-900); Monocytes Percent Auto 8.8 % (3-14); Neutrophils Absolute Auto 4100 /uL (1500-7000); Platelet Count 183 X10^3/uL (150-400); Red Blood Cell Count 4.44 X10^6/uL (4.5-5.9); Red Cell Distribution Width 14.2 % (11.6-14.8); White Blood Cell Count 7.4 X10^3/uL (4.5-11.0)
[2020-05-15 14:15] LABS: INR 1.1 (0.9-1.3); Prothrombin Time 12.3 SECONDS (10.1-12.7)
[2020-05-15 14:18] LABS: PTT Partial Thromboplastin Tim 33 SECONDS (26.4-36.2)
[2020-05-15] MEDS: ONDANSETRON 4 MG/2 ML INJ IV (14:21)
[2020-05-15 14:22] LABS: Alanine Aminotransferase 16 IU/L (<50); Albumin 4.4 g/dL (3.5-5.0); Albumin Globulin Ratio 1.3 (1.0-2.8); Alkaline Phosphatase 72 U/L (38-126); Aspartate Aminotransferase 19 IU/L (17-59); Bilirubin Total 0.4 mg/dL (0.2-1.3); Blood Urea Nitrogen 18 mg/dL (9-20); Calcium 9.5 mg/dL (8.4-10.2); Carbon Dioxide 25 mmol/L (22-32); Chloride 107 mmol/L (98-107); Creatine Kinase 100 U/L (55-170); Estimated Glomerular Filt Rate > 60.0 mL/min (>60); Globulin 3.3 g/dL (1.7-4.1); Glucose 94 mg/dL (70-100); HEMOLYSIS < 15 (0-50); Lipase 153 U/L (23-300); Sodium 140 mmol/L (137-145); Total Protein 7.7 g/dL (6.3-8.2)
[2020-05-15 14:23] LABS: Potassium 3.8 mmol/L (3.4-5.1)
[2020-05-15 14:30] LABS: NT-proBNP (BNP-Adult 18+) 24 pg/mL (<125)
[2020-05-15 14:33] LABS: Troponin I < 0.012 ng/mL (0.01-0.034)
--- NOTE | 2020-05-15 15:28 | PC.NURSE ---
called poison control and verified chemical exposure. They recommended supportive care. If lung sounds were clear then no chest xray needed. Pt should be monitored for chemical exposure pneumonititis. Lung sounds were clear bilaterally upon auscultation. Rashmi Rushing was notified.
[2020-05-15 16:24] LABS: Troponin I < 0.012 ng/mL (0.01-0.034)
== END 2020-05-15 16:48 | disposition home or self-care (01) ==
PROVIDERS: Emergency Provider Nurse Practitioner; PCP Internal Medicine
DX: Z57.5 Occupational exposure to toxic agents in other industries (principal); R07.9 Chest pain, unspecified; R06.02 Shortness of breath; Y99.0 Civilian activity done for income or pay
CPT/HCPCS: 36415; 71045; 80053; 82550; 83690; 83880; 84484; 85025; 85610; 85730; 93005; 96374; 99284; J2405

== ENCOUNTER → 2020-06-12 07:32 | Outpatient (CLI) | payer OTHER, SELFPAY ==
[2020-06-12 08:00] LABS: Add Manual Diff / Slide Review NO; Basophils Absolute Auto 200 /uL (0-100); Basophils Percent Auto 2.2 % (0-2); Eosinophils Absolute Auto 300 /uL (0-450); Eosinophils Percent Auto 4.4 % (2-4); Hematocrit 39.9 % (41-53); Hemoglobin 13.2 g/dL (13.5-17.5); Lymphocytes Absolute Auto 2400 /uL (1100-4500); Lymphocytes Percent Auto 30.8 % (25-40); Mean Corpuscular Hemoglobin 28.5 PG (26-34); Mean Corpuscular Volume 86.3 fL (80-100); Monocytes Absolute Auto 500 /uL (0-900); Monocytes Percent Auto 7.1 % (3-14); Neutrophils Absolute Auto 4300 /uL (1500-7000); Neutrophils Percent Auto 55.5 % (50-75); Platelet Count 187 X10^3/uL (150-400); Red Blood Cell Count 4.63 X10^6/uL (4.5-5.9); Red Cell Distribution Width 13.7 % (11.6-14.8); White Blood Cell Count 7.7 X10^3/uL (4.5-11.0)
[2020-06-12 08:15] LABS: Hemoglobin A1C% w Est Avg Glu 5.7 % (4.0-6.0)
[2020-06-12 08:18] LABS: Alanine Aminotransferase 21 IU/L (<50); Albumin 4.7 g/dL (3.5-5.0); Albumin Globulin Ratio 1.3 (1.0-2.8); Alkaline Phosphatase 84 U/L (38-126); Aspartate Aminotransferase 22 IU/L (17-59); BUN Creatinine Ratio 17.8 (6-22); Bilirubin Total 0.5 mg/dL (0.2-1.3); Blood Urea Nitrogen 19 mg/dL (9-20); Calcium 9.2 mg/dL (8.4-10.2); Carbon Dioxide 27 mmol/L (22-32); Chloride 108 mmol/L (98-107); Cholesterol 158 mg/dL (140-199); Estimated Glomerular Filt Rate > 60.0 mL/min (>60); Globulin 3.5 g/dL (1.7-4.1); Glucose 113 mg/dL (70-100); HDL Cholesterol 46 mg/dL (40-60); HEMOLYSIS < 15 (0-50); LDL Cholesterol Calculated 97 mg/dL (<100); Potassium 4.3 mmol/L (3.4-5.1); Sodium 142 mmol/L (137-145); Total Protein 8.2 g/dL (6.3-8.2); Triglycerides 76 mg/dL (35-150)
[2020-06-12 08:49] LABS: TSH w/ Reflex to FT4 0.14 uIU/mL (0.47-4.68)
[2020-06-12 09:54] LABS: Free T4, Direct Thyroxine 1.41 ng/dL (0.78-2.19)
== END ==
PROVIDERS: PCP Internal Medicine; Referring Provider Internal Medicine; Visit Provider Internal Medicine
DX: I10 Essential (primary) hypertension (principal); E03.9 Hypothyroidism, unspecified
CPT/HCPCS: 36415; 80053; 80061; 83036; 84439; 84443; 85025

== ENCOUNTER → 2021-01-24 09:51 | Outpatient (CLI) | payer OTHER, SELFPAY ==
[2021-01-24] MEDS: COVID-19 VACC, Ad26(JANSSEN)/PF 0.5 ML IM (10:11)
== END ==
PROVIDERS: PCP Internal Medicine; Visit Provider Internal Medicine
DX: Z23 Encounter for immunization (principal)
CPT/HCPCS: 0031A; 91303

== ENCOUNTER → 2021-04-09 18:52 | Outpatient (ROUT) | payer OTHER, SELFPAY ==
[2021-04-09 19:26] LABS: Add Manual Diff / Slide Review NO; Basophils Absolute Auto 100 /uL (0-100); Basophils Percent Auto 0.8 % (0-2); Eosinophils Absolute Auto 300 /uL (0-450); Eosinophils Percent Auto 4.5 % (2-4); Hematocrit 39.6 % (41-53); Hemoglobin 13.2 g/dL (13.5-17.5); Lymphocytes Absolute Auto 2800 /uL (1100-4500); Lymphocytes Percent Auto 35.9 % (25-40); Mean Corpuscular HGB Conc 33.4 % (30-36); Mean Corpuscular Hemoglobin 28.4 PG (26-34); Mean Corpuscular Volume 85.1 fL (80-100); Monocytes Absolute Auto 600 /uL (0-900); Monocytes Percent Auto 7.8 % (3-14); Neutrophils Absolute Auto 3900 /uL (1500-7000); Platelet Count 222 X10^3/uL (150-400); Red Blood Cell Count 4.66 X10^6/uL (4.5-5.9); Red Cell Distribution Width 13.8 % (11.6-14.8); White Blood Cell Count 7.8 X10^3/uL (4.5-11.0)
[2021-04-09 19:40] LABS: Alanine Aminotransferase 21 IU/L (<50); Albumin 4.2 g/dL (3.5-5.0); Albumin Globulin Ratio 1.3 (1.0-2.8); Alkaline Phosphatase 86 U/L (38-126); Aspartate Aminotransferase 23 IU/L (17-59); Bilirubin Total 0.4 mg/dL (0.2-1.3); Blood Urea Nitrogen 16 mg/dL (9-20); C-Reactive Protein Quant 0.6 mg/dL (<1.0); Calcium 9.2 mg/dL (8.4-10.2); Carbon Dioxide 23 mmol/L (22-32); Chloride 106 mmol/L (98-107); Estimated Glomerular Filt Rate > 60.0 mL/min (>60); Globulin 3.3 g/dL (1.7-4.1); Glucose 93 mg/dL (70-100); HEMOLYSIS < 15 (0-50); Potassium 4.2 mmol/L (3.4-5.1); Sodium 139 mmol/L (137-145); Total Protein 7.5 g/dL (6.3-8.2)
[2021-04-09 20:03] LABS: Erythrocyte Sedimentation Rate 7 MM/HR (0-15); TSH w/ Reflex to FT4 0.15 uIU/mL (0.47-4.68)
[2021-04-09 20:49] LABS: Free T4, Direct Thyroxine 1.16 ng/dL (0.78-2.19)
[2021-04-12 18:07] LABS: ANA Screen, IFA Negative (.)
== END ==
PROVIDERS: PCP Internal Medicine; Visit Provider Internal Medicine
DX: M34.9 Systemic sclerosis, unspecified (principal); R53.83 Other fatigue
CPT/HCPCS: 80053; 84439; 84443; 85025; 85651; 86038; 86140

== ENCOUNTER → 2021-07-30 14:46 | Outpatient (CLI) | payer OTHER, SELFPAY ==
[2021-07-30 15:59] LABS: Cholesterol 163 mg/dL (140-199); HDL Cholesterol 41 mg/dL (40-60); LDL Cholesterol Calculated 99 mg/dL (<100); Triglycerides 114 mg/dL (35-150)
[2021-07-30 16:58] LABS: Free T4, Direct Thyroxine 1.42 ng/dL (0.78-2.19)
== END ==
PROVIDERS: PCP Family Medicine; Referring Provider Family Medicine; Visit Provider Family Medicine
DX: G47.33 Obstructive sleep apnea (adult) (pediatric) (principal); E03.9 Hypothyroidism, unspecified; G89.29 Other chronic pain; R53.82 Chronic fatigue, unspecified; M54.5 Low back pain; E78.5 Hyperlipidemia, unspecified
CPT/HCPCS: 36415; 80061; 84439; 84443

== ENCOUNTER → 2021-08-09 15:06 | Outpatient (CLI) | payer OTHER, SELFPAY ==
--- NOTE | 2021-08-09 15:07 | DI.RAD.S_ITS ---
PROCEDURE: XR SHOULDER LT MIN 2V INDICATIONS: left shoulder pain TECHNIQUE: 3 views of the shoulder were acquired. COMPARISON: None. FINDINGS: Bones: No fractures or dislocations. No suspicious bony lesions. Visualized ribs appear intact. Mild acromioclavicular narrowing. Soft tissues: No suspicious soft tissue calcifications. Slight appearance of increased patchy opacity within the left base. IMPRESSION: 1. Mild acromioclavicular narrowing. 2. Slight appearance of patchy left basilar opacity. Chest x-ray is recommended for further evaluation. Dictated by: Velvet Duke M.D. on 08/09/2021 at 16:34 Approved by: Velvet Duke M.D. on 08/09/2021 at 16:35
== END ==
PROVIDERS: PCP Family Medicine; Referring Provider Family Medicine; Visit Provider Family Medicine
DX: S43.402A Unspecified sprain of left shoulder joint, initial encounter (principal); M47.812 Spondylosis without myelopathy or radiculopathy, cervical region; M48.02 Spinal stenosis, cervical region
CPT/HCPCS: 73030

== ENCOUNTER → 2021-08-17 14:18 | Outpatient (CLI) | payer OTHER, SELFPAY ==
--- NOTE | 2021-08-17 14:19 | DI.RAD.S_ITS ---
PROCEDURE: XR CHEST 2V INDICATIONS: patchy area in left lung on left shoulder XR TECHNIQUE: 2 views of the chest were acquired. COMPARISON: [facility], CR, XR SHOULDER LT MIN 2V, 08/09/2021, 15:02. [facility], CR, XR CHEST 1V, 05/15/2020, 13:54. FINDINGS: Surgical changes and devices: None. Lungs and pleura: Lungs are clear. No pleural effusions or pneumothorax. Mediastinum: Mediastinal contours are normal. Heart size is normal. Bones and chest wall: No suspicious bony abnormalities. Soft tissues appear unremarkable. IMPRESSION: No acute pulmonary process. Dictated by: Velvet Duke M.D. on 08/17/2021 at 15:58 Approved by: Velvet Duke M.D. on 08/17/2021 at 15:59
== END ==
PROVIDERS: PCP Family Medicine; Referring Provider Family Medicine; Visit Provider Family Medicine
DX: J98.11 Atelectasis (principal)
CPT/HCPCS: 71046

== ENCOUNTER 2021-11-27 14:30 | Outpatient (RCR) | payer OTHER, SELFPAY ==
--- NOTE | 2021-11-20 17:00 | PT.OIE ---
Current Diagnoses Pain in left shoulder (11/20/21) Stiffness of left shoulder, not elsewhere classified (11/20/21) Unspecified sprain of left shoulder joint, initial encounter (11/20/21) Unspecified sprain of left shoulder joint, subsequent encounter (11/20/21) Past Medical History (Last Updated 08/09/21 @ 14:51 by Alvin Levi MD) Bilateral carpal tunnel syndrome Cervical spondylosis Cervical stenosis of spine Chronic back pain Chronic knee pain Fatigue (~10/2018) Flexor tendon laceration of right hand with open wound Hypothyroidism Laceration of finger of right hand Migraine Obstructive sleep apnea S/P cervical spinal fusion Sprain of left shoulder Ulnar nerve entrapment at right elbow Past Surgical History (Last Updated 06/20/21 @ 11:32 by Alvin Levi MD) S/P cervical spinal fusion Visit Care Team Role Provider Type Alvin Levi MD Attending Provider Physician Family Provider Primary Care Provider Referring Provider Specialty: Family Practice Address: [address] [place] [address] Email: [email or web address] Physical Therapy Initial Evaluation PT-OP-A Visit Information Start: 11/20/21 17:33 Freq: Status: Active Protocol: Document 11/20/21 16:15 DCW (Rec: 11/20/21 17:49 DCW [id number]) Out-Patient Physical Therapy Visit Information Visit Information Visit Type Initial Evaluation Visit Note Pt arrived 15 min late Visit Start Time 16:15 Visit Stop Time 16:45 Total Visit Minutes 30 Visit Number 1 Number of WEB ART DIRECTOR Visits 0 Evaluation Information Evaluation Date 11/20/21 PT-OP-B Current Condition Start: 11/20/21 17:33 Freq: Status: Active Protocol: Document 11/20/21 16:15 DCW (Rec: 11/21/21 10:15 DCW [id number]) Current Condition History of Current Condition Onset Date Three months Current Complaints Left shoulder pain, weakness History of Current Condition Pt is a 56 year old male presenting with a three month history of left shoulder pain. Notes he had been diagnosed with bursitis, but then the pain began to change, and now he just has ungodly pain when attempting to lift left arm, mainly in abduction. Notes that since he is right handed, it doesn't prevent him from doing much, but when at rest, he often forgets it even hurts, and then he attempts to reach out for something and experiences horrible pain. Pt unaware of any specific event which caused the injury. Treatment Goals Patient/Caregiver Goals Return left arm to full function PT-OP-C Subjective Start: 11/20/21 17:33 Freq: Status: Active Protocol: Document 11/20/21 16:15 DCW (Rec: 11/20/21 17:52 DCW [id number]) OP-PT Subjective Patient Comments Patient Comments If I lift my arm up away from my body, it feels like someone is ripping the muscles off my bone. Patient Reported Progress Worse Patient Questionnaires Quick Dash- Upper Extremity Quick Dash UE Score 60% Quick Dash UE Impairment 60 to 79% Impaired (Score 60- 79) OP-PT Pain Assessment Location Left Lateral Shoulder Intensity 9 Scale Used Lu (Faces) PT-OP-E Functional Tests Start: 11/20/21 17:33 Freq: Status: Active Protocol: Document 11/20/21 16:15 DCW (Rec: 11/21/21 10:15 DCW [id number]) Functional Tests Apley's Scratch Test Action 1- Left Anterior opposite shoulder Action 1- Right Posterior opposite shoulder Action 2- Left Occiput Action 2- Right T4 Action 3- Left Left lateral hip Action 3- Right T10 PT-OP-F Manual Assessment Start: 11/20/21 17:33 Freq: Status: Active Protocol: Document 11/20/21 16:15 DCW (Rec: 11/21/21 10:15 DCW [id number]) Manual Assessments Soft Tissue Assessment Soft Tissue Mobility Assessment Tenderness with palpation 3/4: Winching and withdraw on all rotator cuff muscles, left deltoid Joint Mobility Assessment Joint Mobility Assessment Empty end feel with PROM, limited entirely by pain PT-OP-K Range of Motion Start: 11/20/21 17:33 Freq: Status: Active Protocol: Document 11/20/21 16:15 DCW (Rec: 11/21/21 10:15 DCW [id number]) Shoulder Goniometric Range of Motion Shoulder Left Passive Testing Position Sitting Flexion 102 Abduction 90 Left Active Testing Position Sitting Flexion 94 Abduction 86 Shoulder ROM Limitations Shoulder ROM Limitations Pain PT-OP-L Special Tests Start: 11/20/21 17:33 Freq: Status: Active Protocol: Document 11/20/21 16:15 DCW (Rec: 11/21/21 10:15 DCW [id number]) Special Tests Shoulder Special Tests Passive ER Rotator Cuff Test Results Positive left Painful Arc Test Results Positive left Lift-Off Rotator Cuff Test Results Unable to position left Martins Bart Impingement Test Results Positive left Grind Labrum Test Results Positive left Empty Can Test Results Positive left Belly Press Test Results Positive left Apprehension Test Test Results Positive left AC Joint Compression Test Results Positive left PT-OP-M Strength Start: 11/20/21 17:33 Freq: Status: Active Protocol: Document 11/20/21 16:15 DCW (Rec: 11/21/21 10:15 DCW [id number]) Shoulder Strength Shoulder Manual Muscle Testing Right Flexion 5 Normal Abduction (C5) 4 Good External Rotation 4 Good Internal Rotation 4 Good Left Flexion 3- Fair- Abduction (C5) 2+ Poor+ External Rotation 4 Good Internal Rotation 4 Good PT-OP-T Assessment and Plan Start: 11/20/21 17:33 Freq: Status: Active Protocol: Document 11/20/21 16:15 DCW (Rec: 11/20/21 17:49 DCW [id number]) Physical Therapy Assessment Rehab Potential Rehabilitation Potential Fair Evaluation Complexity Number of Personal Factors/Comorbidities 1-2 Number of Body Systems Impaired 1-2 Clinical Presentation at Evaluation Unstable Impairments Impairments Functional Activities, Functional Mobility,Pain,ROM, Soft Tissue Mobility,Strength, Tone Goals Two Impairment Pt unable to lift cup with left arm Fci Goal (LTG) Pt to improve L shoulder MMT to at least 4/5 in order to return to normal daily function LTG Duration 02/18/22 One Impairment Pt does not have an appropriate home exercise program Short Term Goal (STG) Pt to be independent and compliant with an appropriate HEP STG Duration 12/21/21 Assessment Summary Assessment Pt presents with severe left shoulder pain and disfunction. At this time, all special testing is positive, making differential diagnosis practically impossible. Pt demonstrating incredible pain both with testing and just at rest. Discussed with pt importance of passive ROM to decrease possibility of adhesive capsulitis. Will work with pt to decrease pain response in an effort to better assess any injuries or structural deficiencies. If there is no progress, pt may need to undergo advanced imaging to help rule in/out diagnosis. At this time, pt severely limited with strength and ROM secondary to pain. Likely rotator cuff involvement. Physical Therapy Plan Frequency and Duration Frequency of Treatment 2x/Week Duration of Treatment Three months Plan of Care Start Date 11/20/21 Plan of Care End Date 02/18/22 Therapeutic Interventions Therapeutic Interventions Home Exercise Program,Joint Mobilizations,Manual Therapy, Patient/Caregiver Education, Self-Care/Home Management,Soft Tissue Mobilization, Therapeutic Activities, Therapeutic Exercises Modalities Cold Pack/Ice Massage,Electric Stimulation,Hot Packs, Ultrasound Next Visit Focus/Plan Next Note Type Treatment Note Next Visit Plan PROM, AROM as tolerated, gentle strengthening, STM, pain-control modalities
--- NOTE | 2021-11-20 17:00 | PT.OPPOC ---
Physical, Occupational & Speech Therapy At [facility] Current Diagnoses Pain in left shoulder (11/20/21) Stiffness of left shoulder, not elsewhere classified (11/20/21) Unspecified sprain of left shoulder joint, initial encounter (11/20/21) Unspecified sprain of left shoulder joint, subsequent encounter (11/20/21) Visit Care Team Role Provider Type Alvin Levi MD Attending Provider Physician Family Provider Primary Care Provider Referring Provider Specialty: Family Practice Address: [address] [place] [address] Email: [email or web address] Plan Of Care PT-OP-T Assessment and Plan Start: 11/20/21 17:33 Freq: Status: Active Protocol: Document 11/20/21 16:15 DCW (Rec: 11/20/21 17:49 DCW [id number]) Physical Therapy Assessment Rehab Potential Rehabilitation Potential Fair Evaluation Complexity Number of Personal Factors/Comorbidities 1-2 Number of Body Systems Impaired 1-2 Clinical Presentation at Evaluation Unstable Impairments Impairments Functional Activities, Functional Mobility,Pain,ROM, Soft Tissue Mobility,Strength, Tone Goals Two Impairment Pt unable to lift cup with left arm Chcf Goal (LTG) Pt to improve L shoulder MMT to at least 4/5 in order to return to normal daily function LTG Duration 02/18/22 One Impairment Pt does not have an appropriate home exercise program Short Term Goal (STG) Pt to be independent and compliant with an appropriate HEP STG Duration 12/21/21 Assessment Summary Assessment Pt presents with severe left shoulder pain and disfunction. At this time, all special testing is positive, making differential diagnosis practically impossible. Pt demonstrating incredible pain both with testing and just at rest. Discussed with pt importance of passive ROM to decrease possibility of adhesive capsulitis. Will work with pt to decrease pain response in an effort to better assess any injuries or structural deficiencies. If there is no progress, pt may need to undergo advanced imaging to help rule in/out diagnosis. At this time, pt severely limited with strength and ROM secondary to pain. Likely rotator cuff involvement. Physical Therapy Plan Frequency and Duration Frequency of Treatment 2x/Week Duration of Treatment Three months Plan of Care Start Date 11/20/21 Plan of Care End Date 02/18/22 Therapeutic Interventions Therapeutic Interventions Home Exercise Program,Joint Mobilizations,Manual Therapy, Patient/Caregiver Education, Self-Care/Home Management,Soft Tissue Mobilization, Therapeutic Activities, Therapeutic Exercises Modalities Cold Pack/Ice Massage,Electric Stimulation,Hot Packs, Ultrasound Next Visit Focus/Plan Next Note Type Treatment Note Next Visit Plan PROM, AROM as tolerated, gentle strengthening, STM, pain-control modalities Plan of Care Dates Plan of Care Start Date 11/20/21 Plan of Care End Date 02/18/22 Electronically Signed by: Cj Mauro, PT 11/21/21 1018 Please Sign and Return: I have reviewed this Plan of Care and certify that the skilled therapy services above are required to meet the patient?s needs. Physician Signature Date Printed Name and Credentials Clinical Instructor Signature Printed Name and Credentials
--- NOTE | 2021-11-20 17:00 | PT.OPPOC ---
Physical, Occupational & Speech Therapy At [facility] Current Diagnoses Pain in left shoulder (11/20/21) Stiffness of left shoulder, not elsewhere classified (11/20/21) Unspecified sprain of left shoulder joint, initial encounter (11/20/21) Unspecified sprain of left shoulder joint, subsequent encounter (11/20/21) Visit Care Team Role Provider Type Alvin Levi MD Attending Provider Physician Family Provider Primary Care Provider Referring Provider Specialty: Family Practice Address: [address] [place] [address] Email: [email or web address] Plan Of Care PT-OP-T Assessment and Plan Start: 11/20/21 17:33 Freq: Status: Active Protocol: Document 11/20/21 16:15 DCW (Rec: 11/20/21 17:49 DCW [id number]) Physical Therapy Assessment Rehab Potential Rehabilitation Potential Fair Evaluation Complexity Number of Personal Factors/Comorbidities 1-2 Number of Body Systems Impaired 1-2 Clinical Presentation at Evaluation Unstable Impairments Impairments Functional Activities, Functional Mobility,Pain,ROM, Soft Tissue Mobility,Strength, Tone Goals Two Impairment Pt unable to lift cup with left arm Fci Goal (LTG) Pt to improve L shoulder MMT to at least 4/5 in order to return to normal daily function LTG Duration 02/18/22 One Impairment Pt does not have an appropriate home exercise program Short Term Goal (STG) Pt to be independent and compliant with an appropriate HEP STG Duration 12/21/21 Assessment Summary Assessment Pt presents with severe left shoulder pain and disfunction. At this time, all special testing is positive, making differential diagnosis practically impossible. Pt demonstrating incredible pain both with testing and just at rest. Discussed with pt importance of passive ROM to decrease possibility of adhesive capsulitis. Will work with pt to decrease pain response in an effort to better assess any injuries or structural deficiencies. If there is no progress, pt may need to undergo advanced imaging to help rule in/out diagnosis. At this time, pt severely limited with strength and ROM secondary to pain. Likely rotator cuff involvement. Physical Therapy Plan Frequency and Duration Frequency of Treatment 2x/Week Duration of Treatment Three months Plan of Care Start Date 11/20/21 Plan of Care End Date 02/18/22 Therapeutic Interventions Therapeutic Interventions Home Exercise Program,Joint Mobilizations,Manual Therapy, Patient/Caregiver Education, Self-Care/Home Management,Soft Tissue Mobilization, Therapeutic Activities, Therapeutic Exercises Modalities Cold Pack/Ice Massage,Electric Stimulation,Hot Packs, Ultrasound Next Visit Focus/Plan Next Note Type Treatment Note Next Visit Plan PROM, AROM as tolerated, gentle strengthening, STM, pain-control modalities Plan of Care Dates Plan of Care Start Date 11/20/21 Plan of Care End Date 02/18/22 Electronically Signed by: Cj Mauro, PT 11/21/21 1016 Please Sign and Return: I have reviewed this Plan of Care and certify that the skilled therapy services above are required to meet the patient?s needs. Physician Signature Date Printed Name and Credentials Clinical Instructor Signature Printed Name and Credentials
--- NOTE | 2021-11-21 10:15 | PT.OIE ---
Current Diagnoses Pain in left shoulder (11/20/21) Stiffness of left shoulder, not elsewhere classified (11/20/21) Unspecified sprain of left shoulder joint, initial encounter (11/20/21) Unspecified sprain of left shoulder joint, subsequent encounter (11/20/21) Past Medical History (Last Updated 08/09/21 @ 14:51 by Alvin Levi MD) Bilateral carpal tunnel syndrome Cervical spondylosis Cervical stenosis of spine Chronic back pain Chronic knee pain Fatigue (~10/2018) Flexor tendon laceration of right hand with open wound Hypothyroidism Laceration of finger of right hand Migraine Obstructive sleep apnea S/P cervical spinal fusion Sprain of left shoulder Ulnar nerve entrapment at right elbow Past Surgical History (Last Updated 06/20/21 @ 11:32 by Alvin Levi MD) S/P cervical spinal fusion Visit Care Team Role Provider Type Alvin Levi MD Attending Provider Physician Family Provider Primary Care Provider Referring Provider Specialty: Family Practice Address: [address] [place] [address] Email: [email or web address] Physical Therapy Initial Evaluation PT-OP-A Visit Information Start: 11/20/21 17:33 Freq: Status: Active Protocol: Document 11/20/21 16:15 DCW (Rec: 11/20/21 17:49 DCW [id number]) Out-Patient Physical Therapy Visit Information Visit Information Visit Type Initial Evaluation Visit Note Pt arrived 15 min late Visit Start Time 16:15 Visit Stop Time 16:45 Total Visit Minutes 30 Visit Number 1 Number of HOME TEACHING GRADES 7 AND 8 TEACHER Visits 0 Evaluation Information Evaluation Date 11/20/21 PT-OP-B Current Condition Start: 11/20/21 17:33 Freq: Status: Active Protocol: Document 11/20/21 16:15 DCW (Rec: 11/21/21 10:15 DCW [id number]) Current Condition History of Current Condition Onset Date Three months Current Complaints Left shoulder pain, weakness History of Current Condition Pt is a 56 year old male presenting with a three month history of left shoulder pain. Notes he had been diagnosed with bursitis, but then the pain began to change, and now he just has ungodly pain when attempting to lift left arm, mainly in abduction. Notes that since he is right handed, it doesn't prevent him from doing much, but when at rest, he often forgets it even hurts, and then he attempts to reach out for something and experiences horrible pain. Pt unaware of any specific event which caused the injury. Treatment Goals Patient/Caregiver Goals Return left arm to full function PT-OP-C Subjective Start: 11/20/21 17:33 Freq: Status: Active Protocol: Document 11/20/21 16:15 DCW (Rec: 11/20/21 17:52 DCW [id number]) OP-PT Subjective Patient Comments Patient Comments If I lift my arm up away from my body, it feels like someone is ripping the muscles off my bone. Patient Reported Progress Worse Patient Questionnaires Quick Dash- Upper Extremity Quick Dash UE Score 60% Quick Dash UE Impairment 60 to 79% Impaired (Score 60- 79) OP-PT Pain Assessment Location Left Lateral Shoulder Intensity 9 Scale Used Lu (Faces) PT-OP-E Functional Tests Start: 11/20/21 17:33 Freq: Status: Active Protocol: Document 11/20/21 16:15 DCW (Rec: 11/21/21 10:15 DCW [id number]) Functional Tests Apley's Scratch Test Action 1- Left Anterior opposite shoulder Action 1- Right Posterior opposite shoulder Action 2- Left Occiput Action 2- Right T4 Action 3- Left Left lateral hip Action 3- Right T10 PT-OP-F Manual Assessment Start: 11/20/21 17:33 Freq: Status: Active Protocol: Document 11/20/21 16:15 DCW (Rec: 11/21/21 10:15 DCW [id number]) Manual Assessments Soft Tissue Assessment Soft Tissue Mobility Assessment Tenderness with palpation 3/4: Winching and withdraw on all rotator cuff muscles, left deltoid Joint Mobility Assessment Joint Mobility Assessment Empty end feel with PROM, limited entirely by pain PT-OP-K Range of Motion Start: 11/20/21 17:33 Freq: Status: Active Protocol: Document 11/20/21 16:15 DCW (Rec: 11/21/21 10:15 DCW [id number]) Shoulder Goniometric Range of Motion Shoulder Left Passive Testing Position Sitting Flexion 102 Abduction 90 Left Active Testing Position Sitting Flexion 94 Abduction 86 Shoulder ROM Limitations Shoulder ROM Limitations Pain PT-OP-L Special Tests Start: 11/20/21 17:33 Freq: Status: Active Protocol: Document 11/20/21 16:15 DCW (Rec: 11/21/21 10:15 DCW [id number]) Special Tests Shoulder Special Tests Passive ER Rotator Cuff Test Results Positive left Painful Arc Test Results Positive left Lift-Off Rotator Cuff Test Results Unable to position left Martins Bart Impingement Test Results Positive left Grind Labrum Test Results Positive left Empty Can Test Results Positive left Belly Press Test Results Positive left Apprehension Test Test Results Positive left AC Joint Compression Test Results Positive left PT-OP-M Strength Start: 11/20/21 17:33 Freq: Status: Active Protocol: Document 11/20/21 16:15 DCW (Rec: 11/21/21 10:15 DCW [id number]) Shoulder Strength Shoulder Manual Muscle Testing Right Flexion 5 Normal Abduction (C5) 4 Good External Rotation 4 Good Internal Rotation 4 Good Left Flexion 3- Fair- Abduction (C5) 2+ Poor+ External Rotation 4 Good Internal Rotation 4 Good PT-OP-T Assessment and Plan Start: 11/20/21 17:33 Freq: Status: Active Protocol: Document 11/20/21 16:15 DCW (Rec: 11/20/21 17:49 DCW [id number]) Physical Therapy Assessment Rehab Potential Rehabilitation Potential Fair Evaluation Complexity Number of Personal Factors/Comorbidities 1-2 Number of Body Systems Impaired 1-2 Clinical Presentation at Evaluation Unstable Impairments Impairments Functional Activities, Functional Mobility,Pain,ROM, Soft Tissue Mobility,Strength, Tone Goals Two Impairment Pt unable to lift cup with left arm Long-Term Goal (LTG) Pt to improve L shoulder MMT to at least 4/5 in order to return to normal daily function LTG Duration 02/18/22 One Impairment Pt does not have an appropriate home exercise program Short Term Goal (STG) Pt to be independent and compliant with an appropriate HEP STG Duration 12/21/21 Assessment Summary Assessment Pt presents with severe left shoulder pain and disfunction. At this time, all special testing is positive, making differential diagnosis practically impossible. Pt demonstrating incredible pain both with testing and just at rest. Discussed with pt importance of passive ROM to decrease possibility of adhesive capsulitis. Will work with pt to decrease pain response in an effort to better assess any injuries or structural deficiencies. If there is no progress, pt may need to undergo advanced imaging to help rule in/out diagnosis. At this time, pt severely limited with strength and ROM secondary to pain. Likely rotator cuff involvement. Physical Therapy Plan Frequency and Duration Frequency of Treatment 2x/Week Duration of Treatment Three months Plan of Care Start Date 11/20/21 Plan of Care End Date 02/18/22 Therapeutic Interventions Therapeutic Interventions Home Exercise Program,Joint Mobilizations,Manual Therapy, Patient/Caregiver Education, Self-Care/Home Management,Soft Tissue Mobilization, Therapeutic Activities, Therapeutic Exercises Modalities Cold Pack/Ice Massage,Electric Stimulation,Hot Packs, Ultrasound Next Visit Focus/Plan Next Note Type Treatment Note Next Visit Plan PROM, AROM as tolerated, gentle strengthening, STM, pain-control modalities
--- NOTE | 2021-11-22 15:05 | PT.OTN ---
Current Diagnoses Pain in left shoulder (11/22/21) Stiffness of left shoulder, not elsewhere classified (11/22/21) Unspecified sprain of left shoulder joint, initial encounter (11/22/21) Unspecified sprain of left shoulder joint, subsequent encounter (11/22/21) Physical Therapy Treatment Note PT-OP-A Visit Information Start: 11/20/21 17:33 Freq: Status: Active Protocol: Document 11/22/21 14:36 DCW (Rec: 11/22/21 15:05 DCW [id number]) Out-Patient Physical Therapy Visit Information Visit Information Visit Type Treatment Note Visit Start Time 14:36 Visit Stop Time 15:15 Total Visit Minutes 39 Visit Number 2 Number of TRIPE SCRAPER Visits 0 Evaluation Information Evaluation Date 11/20/21 PT-OP-B Current Condition Start: 11/20/21 17:33 Freq: Status: Active Protocol: Document 11/20/21 16:15 DCW (Rec: 11/21/21 10:15 DCW [id number]) Current Condition History of Current Condition Onset Date Three months Current Complaints Left shoulder pain, weakness History of Current Condition Pt is a 56 year old male presenting with a three month history of left shoulder pain. Notes he had been diagnosed with bursitis, but then the pain began to change, and now he just has ungodly pain when attempting to lift left arm, mainly in abduction. Notes that since he is right handed, it doesn't prevent him from doing much, but when at rest, he often forgets it even hurts, and then he attempts to reach out for something and experiences horrible pain. Pt unaware of any specific event which caused the injury. Treatment Goals Patient/Caregiver Goals Return left arm to full function PT-OP-C Subjective Start: 11/20/21 17:33 Freq: Status: Active Protocol: Document 11/22/21 14:36 DCW (Rec: 11/22/21 15:05 DCW [id number]) OP-PT Subjective Patient Comments Patient Comments It's pretty much the same. It 's better than it was when it first started, but since initially getting a bit better , there hasn't been much change. PT-OP-E Functional Tests Start: 11/20/21 17:33 Freq: Status: Active Protocol: Document 11/20/21 16:15 DCW (Rec: 11/21/21 10:15 DCW [id number]) Functional Tests Apley's Scratch Test Action 1- Left Anterior opposite shoulder Action 1- Right Posterior opposite shoulder Action 2- Left Occiput Action 2- Right T4 Action 3- Left Left lateral hip Action 3- Right T10 PT-OP-F Manual Assessment Start: 11/20/21 17:33 Freq: Status: Active Protocol: Document 11/20/21 16:15 DCW (Rec: 11/21/21 10:15 DCW [id number]) Manual Assessments Soft Tissue Assessment Soft Tissue Mobility Assessment Tenderness with palpation 3/4: Winching and withdraw on all rotator cuff muscles, left deltoid Joint Mobility Assessment Joint Mobility Assessment Empty end feel with PROM, limited entirely by pain PT-OP-K Range of Motion Start: 11/20/21 17:33 Freq: Status: Active Protocol: Document 11/20/21 16:15 DCW (Rec: 11/21/21 10:15 DCW [id number]) Shoulder Goniometric Range of Motion Shoulder Left Passive Testing Position Sitting Flexion 102 Abduction 90 Left Active Testing Position Sitting Flexion 94 Abduction 86 Shoulder ROM Limitations Shoulder ROM Limitations Pain PT-OP-L Special Tests Start: 11/20/21 17:33 Freq: Status: Active Protocol: Document 11/20/21 16:15 DCW (Rec: 11/21/21 10:15 DCW [id number]) Special Tests Shoulder Special Tests Passive ER Rotator Cuff Test Results Positive left Painful Arc Test Results Positive left Lift-Off Rotator Cuff Test Results Unable to position left Martins Bart Impingement Test Results Positive left Grind Labrum Test Results Positive left Empty Can Test Results Positive left Belly Press Test Results Positive left Apprehension Test Test Results Positive left AC Joint Compression Test Results Positive left PT-OP-M Strength Start: 11/20/21 17:33 Freq: Status: Active Protocol: Document 11/20/21 16:15 DCW (Rec: 11/21/21 10:15 DCW [id number]) Shoulder Strength Shoulder Manual Muscle Testing Right Flexion 5 Normal Abduction (C5) 4 Good External Rotation 4 Good Internal Rotation 4 Good Left Flexion 3- Fair- Abduction (C5) 2+ Poor+ External Rotation 4 Good Internal Rotation 4 Good PT-OP-Q Treatments Start: 11/20/21 17:33 Freq: Status: Active Protocol: Document 11/22/21 14:36 DCW (Rec: 11/22/21 15:05 DC [id number]) Cardio Equipment Upper Body Ergometer (UBE) Duration (Minutes) 1 Seat Position 15 Height 3 Other stopped d/t pain Therapeutic Exercises Sitting Exercises 1 Sitting Exercise Name OH Pulleys Side bilateral Comments Stopped d/t pain Manual Therapy Treatment Soft Tissue Mobilization 1 Body Location L Infraspinatus, supraspinatus PT-OP-R Modalities Start: 11/20/21 17:33 Freq: Status: Active Protocol: Document 11/22/21 14:36 DCW (Rec: 11/22/21 15:05 DCW [id number]) Electric Stimulation Electric Stimulation Interferential Current (IFC) Body Location L shoulder Duration (Minutes) 15 Intensity 19 Patient Position Hooklying Combined With Heat/Cold Hot Pack PT-OP-T Assessment and Plan Start: 11/20/21 17:33 Freq: Status: Active Protocol: Document 11/22/21 14:36 DCW (Rec: 11/22/21 15:05 DCW [id number]) Physical Therapy Assessment Impairments Impairments Functional Activities, Functional Mobility,Pain,ROM, Soft Tissue Mobility,Strength, Tone Goals Two Impairment Pt unable to lift cup with left arm Clerk Manager Goal (LTG) Pt to improve L shoulder MMT to at least 4/5 in order to return to normal daily function LTG Duration 02/18/22 One Impairment Pt does not have an appropriate home exercise program Short Term Goal (STG) Pt to be independent and compliant with an appropriate HEP STG Duration 12/21/21 Assessment Summary Assessment Had to stop all activities early due to pain, pt unable to tolerate even the most basic exercise. Trial of e- stim for pain control. If pt continues to be unable to participate in therapy due to pain, may need to return to PCP for further workup or imaging. Physical Therapy Plan Frequency and Duration Frequency of Treatment 2x/Week Duration of Treatment Three months Plan of Care Start Date 11/20/21 Plan of Care End Date 02/18/22 Therapeutic Interventions Therapeutic Interventions Home Exercise Program,Joint Mobilizations,Manual Therapy, Patient/Caregiver Education, Self-Care/Home Management,Soft Tissue Mobilization, Therapeutic Activities, Therapeutic Exercises Modalities Cold Pack/Ice Massage,Electric Stimulation,Hot Packs, Ultrasound Next Visit Focus/Plan Next Note Type Treatment Note Next Visit Plan PROM, AROM as tolerated, gentle strengthening, STM, pain-control modalities
--- NOTE | 2021-11-27 15:17 | PT.OTN ---
Addendum entered and electronically signed by Sera Barajas, HENNA 11/27/21 15:31: Pt declined hand outs of HEP: side shld ER, supine FF w/ dowel, self STMs ball on wall post/ interscap, pulleys if gets for home FF/ ABD. Original Note: Current Diagnoses Pain in left shoulder (11/27/21) Stiffness of left shoulder, not elsewhere classified (11/27/21) Unspecified sprain of left shoulder joint, initial encounter (11/27/21) Unspecified sprain of left shoulder joint, subsequent encounter (11/27/21) Physical Therapy Treatment Note PT-OP-A Visit Information Start: 11/20/21 17:33 Freq: Status: Active Protocol: Document 11/27/21 14:37 SP (Rec: 11/27/21 15:31 SP [id number]) Out-Patient Physical Therapy Visit Information Visit Information Visit Type Treatment Note Visit Start Time 14:37 Visit Stop Time 15:17 Total Visit Minutes 40 Visit Number 3 Number of LAST REPAIRER Visits 1 Evaluation Information Evaluation Date 11/20/21 PT-OP-B Current Condition Start: 11/20/21 17:33 Freq: Status: Active Protocol: Document 11/20/21 16:15 DCW (Rec: 11/21/21 10:15 DCW [id number]) Current Condition History of Current Condition Onset Date Three months Current Complaints Left shoulder pain, weakness History of Current Condition Pt is a 56 year old male presenting with a three month history of left shoulder pain. Notes he had been diagnosed with bursitis, but then the pain began to change, and now he just has ungodly pain when attempting to lift left arm, mainly in abduction. Notes that since he is right handed, it doesn't prevent him from doing much, but when at rest, he often forgets it even hurts, and then he attempts to reach out for something and experiences horrible pain. Pt unaware of any specific event which caused the injury. Treatment Goals Patient/Caregiver Goals Return left arm to full function PT-OP-C Subjective Start: 11/20/21 17:33 Freq: Status: Active Protocol: Document 11/27/21 14:37 SP (Rec: 11/27/21 15:31 SP [id number]) OP-PT Subjective Patient Comments Patient Comments Pt reports saw an emd special education teacher since last tx and not having any pain now. PT-OP-E Functional Tests Start: 11/20/21 17:33 Freq: Status: Active Protocol: Document 11/20/21 16:15 DCW (Rec: 11/21/21 10:15 DCW [id number]) Functional Tests Apley's Scratch Test Action 1- Left Anterior opposite shoulder Action 1- Right Posterior opposite shoulder Action 2- Left Occiput Action 2- Right T4 Action 3- Left Left lateral hip Action 3- Right T10 PT-OP-F Manual Assessment Start: 11/20/21 17:33 Freq: Status: Active Protocol: Document 11/20/21 16:15 DCW (Rec: 11/21/21 10:15 DCW [id number]) Manual Assessments Soft Tissue Assessment Soft Tissue Mobility Assessment Tenderness with palpation 3/4: Winching and withdraw on all rotator cuff muscles, left deltoid Joint Mobility Assessment Joint Mobility Assessment Empty end feel with PROM, limited entirely by pain PT-OP-K Range of Motion Start: 11/20/21 17:33 Freq: Status: Active Protocol: Document 11/20/21 16:15 DCW (Rec: 11/21/21 10:15 DCW [id number]) Shoulder Goniometric Range of Motion Shoulder Left Passive Testing Position Sitting Flexion 102 Abduction 90 Left Active Testing Position Sitting Flexion 94 Abduction 86 Shoulder ROM Limitations Shoulder ROM Limitations Pain PT-OP-L Special Tests Start: 11/20/21 17:33 Freq: Status: Active Protocol: Document 11/20/21 16:15 DCW (Rec: 11/21/21 10:15 DCW [id number]) Special Tests Shoulder Special Tests Passive ER Rotator Cuff Test Results Positive left Painful Arc Test Results Positive left Lift-Off Rotator Cuff Test Results Unable to position left Martins Bart Impingement Test Results Positive left Grind Labrum Test Results Positive left Empty Can Test Results Positive left Belly Press Test Results Positive left Apprehension Test Test Results Positive left AC Joint Compression Test Results Positive left PT-OP-M Strength Start: 11/20/21 17:33 Freq: Status: Active Protocol: Document 11/20/21 16:15 DCW (Rec: 11/21/21 10:15 DCW [id number]) Shoulder Strength Shoulder Manual Muscle Testing Right Flexion 5 Normal Abduction (C5) 4 Good External Rotation 4 Good Internal Rotation 4 Good Left Flexion 3- Fair- Abduction (C5) 2+ Poor+ External Rotation 4 Good Internal Rotation 4 Good PT-OP-Q Treatments Start: 11/20/21 17:33 Freq: Status: Active Protocol: Document 11/27/21 14:37 SP (Rec: 11/27/21 15:31 SP [id number]) Cardio Equipment Upper Body Ergometer (UBE) Duration (Minutes) 4 RPM 120 Seat Position 14 Height 3 Other 1 min f/b- good pain free easy ROM Therapeutic Exercises Supine Exercises FF dowel Supine Exercise Name added to HEP Resistance AAROM Reps/Minutes 2x5 reps Comments painfree range up to 139 deg Sidelying Exercises shld ER Sidelying Exercise Name added to HEP Side left Resistance AROM Equipment Used towel under arm, pillows under head/ between BLEs spinal alignment Reps/Minutes x10 reps Comments good painfree neutral Sitting Exercises 2 Sitting Exercise Name UT, lev scap stretch Side left Reps/Minutes 15 sec hold each Comments painfree range- good feedback 1 Sitting Exercise Name painfree FF up to 123 deg, ABD up to 93 deg Side bilateral Equipment Used OH Pulleys, mirror for self feedback Reps/Minutes x10 each Comments cued slow pain free range- improved response today Standing Exercises wall walking Side left Comments attempted FF but discussed caused discomfort in shld so stoppped Self STMs Standing Exercise Name UE, interscap, infraspinatus Side left Resistance reviewed self performance does at home Equipment Used racquetball on wall in sleeve Reps/Minutes 30 sec Comments good feedback response, stated uses tennis ball on various areas of body Manual Therapy Treatment Soft Tissue Mobilization 2 Body Location L UT, lev scap Mobilization Type Myofascial Release,Strumming, Sustained Pressure Intensity/Depth Moderate Body Position Hooklying Comments gentle glides, not significant benefits, states has prior spinal surgeries so nervous to pressure contact so stopped. 1 Body Location L Infraspinatus, supraspinatus , post detoid Mobilization Type Myofascial Release,Strumming Intensity/Depth Moderate Body Position Sidelying Comments good feedback response PT-OP-R Modalities Start: 11/20/21 17:33 Freq: Status: Active Protocol: Document 11/22/21 14:36 DCW (Rec: 11/22/21 15:05 DCW [id number]) Electric Stimulation Electric Stimulation Interferential Current (IFC) Body Location L shoulder Duration (Minutes) 15 Intensity 19 Patient Position Hooklying Combined With Heat/Cold Hot Pack PT-OP-T Assessment and Plan Start: 11/20/21 17:33 Freq: Status: Active Protocol: Document 11/27/21 14:37 SP (Rec: 11/27/21 15:31 SP [id number]) Physical Therapy Assessment Goals Two Impairment Pt unable to lift cup with left arm Residential Goal (LTG) Pt to improve L shoulder MMT to at least 4/5 in order to return to normal daily function LTG Duration 02/18/22 One Impairment Pt does not have an appropriate home exercise program Short Term Goal (STG) Pt to be independent and compliant with an appropriate HEP STG Duration 12/21/21 Assessment Summary Assessment Pt improved ROM with pulleys up to 123deg FF, 93 deg ABD, 139 deg FF supine w/ dowel pain free, cues for scap depression stabilization. Continued to have no pain during tx. Physical Therapy Plan Frequency and Duration Frequency of Treatment 2x/Week Duration of Treatment Three months Plan of Care Start Date 11/20/21 Plan of Care End Date 02/18/22 Therapeutic Interventions Therapeutic Interventions Home Exercise Program,Joint Mobilizations,Manual Therapy, Patient/Caregiver Education, Self-Care/Home Management,Soft Tissue Mobilization, Therapeutic Activities, Therapeutic Exercises Modalities Cold Pack/Ice Massage,Electric Stimulation,Hot Packs, Ultrasound Next Visit Focus/Plan Next Note Type Treatment Note Next Visit Plan Recheck HEP initiated today. POC: PROM, AROM as tolerated, gentle strengthening, STM, pain-control modalities
--- NOTE | 2022-07-05 10:03 | PT.OPDS ---
Current Diagnoses Pain in left shoulder (11/27/21) Stiffness of left shoulder, not elsewhere classified (11/27/21) Unspecified sprain of left shoulder joint, initial encounter (11/27/21) Unspecified sprain of left shoulder joint, subsequent encounter (11/27/21) Visit Care Team Role Provider Type Alvin Levi MD Attending Provider Physician Family Provider Primary Care Provider Referring Provider Specialty: [facility] Address: [address] [place] [address], [facility] Email: [email or web address] Visit Number Visit Number 3 Discharge Summary PT-OP-B Current Condition Start: 11/20/21 17:33 Freq: Status: Active Protocol: Document 11/20/21 16:15 DCW (Rec: 11/21/21 10:15 DCW [id number]) Current Condition History of Current Condition Onset Date Three months Current Complaints Left shoulder pain, weakness History of Current Condition Pt is a 56 year old male presenting with a three month history of left shoulder pain. Notes he had been diagnosed with bursitis, but then the pain began to change, and now he just has ungodly pain when attempting to lift left arm, mainly in abduction. Notes that since he is right handed, it doesn't prevent him from doing much, but when at rest, he often forgets it even hurts, and then he attempts to reach out for something and experiences horrible pain. Pt unaware of any specific event which caused the injury. Treatment Goals Patient/Caregiver Goals Return left arm to full function PT-OP-C Subjective Start: 11/20/21 17:33 Freq: Status: Active Protocol: Document 11/27/21 14:37 SP (Rec: 11/27/21 15:31 SP [id number]) OP-PT Subjective Patient Comments Patient Comments Pt reports saw an block inspector since last tx and not having any pain now. PT-OP-E Functional Tests Start: 11/20/21 17:33 Freq: Status: Active Protocol: Document 11/20/21 16:15 DCW (Rec: 11/21/21 10:15 DCW [id number]) Functional Tests Apley's Scratch Test Action 1- Left Anterior opposite shoulder Action 1- Right Posterior opposite shoulder Action 2- Left Occiput Action 2- Right T4 Action 3- Left Left lateral hip Action 3- Right T10 PT-OP-F Manual Assessment Start: 11/20/21 17:33 Freq: Status: Active Protocol: Document 11/20/21 16:15 DCW (Rec: 11/21/21 10:15 DCW [id number]) Manual Assessments Soft Tissue Assessment Soft Tissue Mobility Assessment Tenderness with palpation 3/4: Winching and withdraw on all rotator cuff muscles, left deltoid Joint Mobility Assessment Joint Mobility Assessment Empty end feel with PROM, limited entirely by pain PT-OP-K Range of Motion Start: 11/20/21 17:33 Freq: Status: Active Protocol: Document 11/20/21 16:15 DCW (Rec: 11/21/21 10:15 DCW [id number]) Shoulder Goniometric Range of Motion Shoulder Left Passive Testing Position Sitting Flexion 102 Abduction 90 Left Active Testing Position Sitting Flexion 94 Abduction 86 Shoulder ROM Limitations Shoulder ROM Limitations Pain PT-OP-L Special Tests Start: 11/20/21 17:33 Freq: Status: Active Protocol: Document 11/20/21 16:15 DCW (Rec: 11/21/21 10:15 DCW [id number]) Special Tests Shoulder Special Tests Passive ER Rotator Cuff Test Results Positive left Painful Arc Test Results Positive left Lift-Off Rotator Cuff Test Results Unable to position left Martins Bart Impingement Test Results Positive left Grind Labrum Test Results Positive left Empty Can Test Results Positive left Belly Press Test Results Positive left Apprehension Test Test Results Positive left AC Joint Compression Test Results Positive left PT-OP-M Strength Start: 11/20/21 17:33 Freq: Status: Active Protocol: Document 11/20/21 16:15 DCW (Rec: 11/21/21 10:15 DCW [id number]) Shoulder Strength Shoulder Manual Muscle Testing Right Flexion 5 Normal Abduction (C5) 4 Good External Rotation 4 Good Internal Rotation 4 Good Left Flexion 3- Fair- Abduction (C5) 2+ Poor+ External Rotation 4 Good Internal Rotation 4 Good PT-OP-T Assessment and Plan Start: 11/20/21 17:33 Freq: Status: Active Protocol: Document 07/05/22 10:02 DCW (Rec: 07/05/22 10:03 DCW [id number]) Physical Therapy Assessment Assessment Summary Assessment Pt was last seen seven months ago, as not scheduled any further follow-up visits. Pt will be discharged at this time, will require a new referral in order to return to skilled PT
== END 2022-07-08 13:19 ==
LOC: PHYS 14:30
PROVIDERS: Family Provider Family Medicine; PCP Family Medicine; Referring Provider Family Medicine; Visit Provider Family Medicine
DX: S43.402A Unspecified sprain of left shoulder joint, initial encounter (principal); S43.402D Unspecified sprain of left shoulder joint, subsequent encounter; M25.512 Pain in left shoulder; M25.612 Stiffness of left shoulder, not elsewhere classified
CPT/HCPCS: 97014; 97110; 97140; 97161; G0283

== ENCOUNTER → 2022-02-14 08:12 | Outpatient (CLI) | payer OTHER, SELFPAY ==
--- NOTE | 2022-02-14 08:13 | DI.MRI.S_ITS ---
PROCEDURE: MR SHOULDER LT WO CON INDICATIONS: significant left shoulder pain and reduced ROM TECHNIQUE: Noncontrast oblique coronal T2 fast spin echo with fat saturation, oblique sagittal T1 spin echo and T2 fast spin echo with fat saturation, axial T1 spin echo and T2 fast spin echo with fat saturation through the shoulder. COMPARISON: [facility], CR, XR SHOULDER LT MIN 2V, 08/09/2021, 15:02. FINDINGS: Image quality: Excellent. Rotator cuff: There is partial-thickness tear of the supraspinatus tendon involving the bursal surface. Mild infraspinatus and subscapularis tendinitis without discrete tendon tear. Sagittal images demonstrate no rotator cuff muscle atrophy. Bones and bursae: No bone marrow contusions or fractures. There is mild acromioclavicular and glenohumeral joint degeneration. The acromion demonstrates conventional anatomy, without an os acromiale. No pathologic subacromial-subdeltoid or subcoracoid bursal fluid is present. Capsule and soft tissues: SLAP tear of the superior labrum. The long head of the biceps tendon demonstrates normal location and morphology. The rotator interval appears irregular. The coracohumeral ligament is thickened. Note is made of multiple mildly enlarged left axillary lymph nodes measuring up to 1.1 x 1.8 cm. IMPRESSION: 1. Partial-thickness tear of the supraspinatus tendon. 2. Mild infraspinatus and subscapularis tendinitis. 3. SLAP tear of the superior labrum. 4. Irregular rotator interval and thickening of coracohumeral ligament. The findings are associated with adhesive tendinitis. Recommend clinical correlation. 5. Mild acromioclavicular and glenohumeral joint degeneration. 6. Mild left axillary lymphadenopathy. Recommend clinical correlation and follow-up. Dictated by: Dawna Sahu M.D. on 02/14/2022 at 9:12 Approved by: Dawna Sahu M.D. on 02/14/2022 at 9:19
== END ==
PROVIDERS: Family Provider Family Medicine; PCP Family Medicine; Referring Provider Family Medicine; Visit Provider Family Medicine
DX: M75.112 Incomplete rotator cuff tear or rupture of left shoulder, not specified as traumatic (principal); M75.02 Adhesive capsulitis of left shoulder; S43.432A Superior glenoid labrum lesion of left shoulder, initial encounter; M19.012 Primary osteoarthritis, left shoulder; R59.0 Localized enlarged lymph nodes; M25.512 Pain in left shoulder; M25.60 Stiffness of unspecified joint, not elsewhere classified; G89.29 Other chronic pain
CPT/HCPCS: 73221

== ENCOUNTER → 2022-10-30 08:06 | Outpatient (CLI) | payer OTHER, SELFPAY ==
[2022-10-30 09:22] LABS: Add Manual Diff / Slide Review NO; Basophils Absolute Auto 100 /uL (0-100); Eosinophils Absolute Auto 300 /uL (0-450); Eosinophils Percent Auto 4.5 % (2-4); Hematocrit 38.1 % (41-53); Hemoglobin 12.6 g/dL (13.5-17.5); Lymphocytes Absolute Auto 1700 /uL (1100-4500); Lymphocytes Percent Auto 23.9 % (25-40); Mean Corpuscular Hemoglobin 28.3 PG (26-34); Mean Corpuscular Volume 85.8 fL (80-100); Monocytes Absolute Auto 500 /uL (0-900); Monocytes Percent Auto 7.6 % (3-14); Neutrophils Absolute Auto 4500 /uL (1500-7000); Platelet Count 184 X10^3/uL (150-400); Red Blood Cell Count 4.44 X10^6/uL (4.5-5.9); Red Cell Distribution Width 14.2 % (11.6-14.8); White Blood Cell Count 7.1 X10^3/uL (4.5-11.0)
[2022-10-30 09:48] LABS: Alanine Aminotransferase 43 IU/L (<50); Albumin 4.2 g/dL (3.5-5.0); Albumin Globulin Ratio 1.3 (1.0-2.8); Alkaline Phosphatase 102 U/L (38-126); Aspartate Aminotransferase 30 IU/L (17-59); Bilirubin Total 0.7 mg/dL (0.2-1.3); Blood Urea Nitrogen 19 mg/dL (9-20); Calcium 8.2 mg/dL (8.4-10.2); Carbon Dioxide 24 mmol/L (22-32); Chloride 107 mmol/L (98-107); Cholesterol 168 mg/dL (140-199); Estimated Glomerular Filt Rate > 60 mL/min (>60); Globulin 3.3 g/dL (1.7-4.1); Glucose 113 mg/dL (70-100); HDL Cholesterol 37 mg/dL (40-60); HEMOLYSIS < 15 (0-50); LDL Cholesterol Calculated 118 mg/dL (<100); Sodium 141 mmol/L (137-145); Total Protein 7.5 g/dL (6.3-8.2); Triglycerides 66 mg/dL (35-150)
[2022-10-30 10:08] LABS: TSH w/ Reflex to FT4 0.35 uIU/mL (0.47-4.68)
[2022-10-30 10:39] LABS: Free T4, Direct Thyroxine 1.65 ng/dL (0.78-2.19)
== END ==
PROVIDERS: Family Provider Family Medicine; PCP Family Medicine; Referring Provider Family Medicine; Visit Provider Family Medicine
DX: E03.9 Hypothyroidism, unspecified (principal); R53.82 Chronic fatigue, unspecified
CPT/HCPCS: 36415; 80053; 80061; 84439; 84443; 85025

== ENCOUNTER → 2023-03-20 09:40 | Outpatient (CLI) | payer OTHER, SELFPAY ==
--- NOTE | 2023-03-20 09:41 | DI.RAD.S_ITS ---
PROCEDURE: XR LUMBAR SPINE 2-3V INDICATIONS: Acute on chronic low back pain with bilateral radiculopathy TECHNIQUE: 3 views of the lumbar spine were acquired. COMPARISON: None. FINDINGS: Bones: 5 [id number] vertebrae are present. There is normal bony alignment. No vertebral body compression fractures. No suspicious bony lesions. Disc space narrowing and hypertrophic facet joints noted in the lower lumbar spine Soft tissues: Overlying bowel gas pattern is normal. No suspicious soft tissue calcifications. IMPRESSION: Lower lumbar spine degenerative disc disease and arthropathy Approved by: Luc Narvaez M.D. on 03/20/2023 at 9:21
== END ==
PROVIDERS: Family Provider Family Medicine; PCP Family Medicine; Referring Provider Family Medicine; Visit Provider Family Medicine
DX: M51.16 Intervertebral disc disorders with radiculopathy, lumbar region (principal); M47.26 Other spondylosis with radiculopathy, lumbar region; M54.9 Dorsalgia, unspecified; E03.9 Hypothyroidism, unspecified; G89.29 Other chronic pain
CPT/HCPCS: 72100

== ENCOUNTER 2023-06-04 14:29 | Outpatient (CLI) | payer OTHER, SELFPAY ==
--- NOTE | 2023-06-04 14:31 | DI.RAD.S_ITS ---
PROCEDURE: PAIN L INTERLAMINAR/CAUDAL INJ INDICATIONS: RADICULOPATHY COMPARISON: None. FINDINGS: Fluoroscopic spot filming was performed to verify placement of spinal needles at the right L4-5 level(s), as labeled on the films. Appropriate location(s) of the needle tip(s) was confirmed by injection of iodinated contrast. IMPRESSION: Fluoroscopic support for lumbar interlaminar injection. Please see separate procedure note for further details. Dictated by: Rosendo Barker M.D. on 06/04/2023 at 15:30 Approved by: Rosendo Barker M.D. on 06/04/2023 at 15:31
[2023-06-04 14:55] VITALS: BP 154/86; PULSE 71; RESP 17; O2SAT 100
[2023-06-04] MEDS: IOPAMIDOL 15 ML VIAL 3 ML INJ (14:55)
[2023-06-04] MEDS: DEXAMETHASONE 10 MG/ML VIAL INJ (14:56)
[2023-06-04 15:00] VITALS: BP 149/87; PULSE 73; RESP 14; O2SAT 95
[2023-06-04 15:05] VITALS: BP 131/97; PULSE 85; RESP 16; O2SAT 100
--- NOTE | 2023-06-04 15:10 | P.PCN_ITS ---
Date/Time/Diagnoses Date of procedure: 06/04/23 Time of procedure: 15:00 Procedure Notes Physician: Mundo Poe Total Fluoroscopy time (seconds): 13 Total sedation minutes: 0 Procedure in detail & Post-procedure care: L4-5 Interlaminar Epidural Steroid Injection Indications: Maxim is presenting for treatment of lumbar radiculopathy with low back and leg pain. Preoperative diagnosis: Lumbar radiculopathy Postoperative diagnosis: Same Focused Examination: Ax3 Mood and affect are normal Vital Signs: VSS Consent: Following review of allergies and potential side effects/complications, including, but not necessarily limited to, infection, allergic reaction, local tissue breakdown, stroke, temporary or permanent nerve injury, paralysis, and possible , the patient indicated that they understood and agreed to proceed.? An informed consent document was signed by the patient, witnessed by a nurse and placed in the patient's chart.? Additionally, other treatment options including medications and physical therapy were reviewed with the patient. All questions were answered. Site was then marked. Position: Prone Monitoring: NIBP, Pulse oximetry, 3 lead EKG Needle used: 18 G 3.5? Tuohy Contrast: Isovue 300M Injectate: Dexamethasone 10 mg with 1% lidocaine 2 mL Technique: The skin was prepped with chloraprep and then draped in a sterile fashion. Time out was performed as per protocol. Oxygen applied via NC. Skin and subcutaneous structures of the needle entry site was then infiltrated with 3 mL of lidocaine 1%. Under AP, lateral and contralateral oblique fluoroscopic control, the Tuohy needle was guided into the L4-5 epidural space. The space was accessed with loss of resistance technique. Isovue 300M was then injected and the spread was consistent with the epidural space. There was no evidence for intravascular or intrathecal uptake. After negative aspiration, the above- mentioned injectate was then slowly administered and the needle withdrawn. The patient expressed no unusual discomfort or paresthesias during the injection. Band-Aids applied to injection sites. EBL: less than 1 ml Complications: None Post Procedure: Patient was taken to the recovery and monitored. The patient was provided a Pain Log to continue to record the patient's response to the target- specific procedure prior to the patient's follow-up visit with the referring physician. Patient was stable upon discharge. Detailed post procedure instructions were provided. Patient was asked to call in the event of worsening pain, fever, weakness, numbness or bladder or bowel incontinence.
== END 2023-06-04 15:16 | disposition home or self-care (01) ==
LOC: RAD 14:30
PROVIDERS: Family Provider Family Medicine; PCP Family Medicine; Referring Provider Anesthesiology; Visit Provider Anesthesiology
DX: M54.16 Radiculopathy, lumbar region (principal)
CPT/HCPCS: 62323; J1100

== ENCOUNTER → 2023-06-26 15:37 | Outpatient (CLI) | payer OTHER, SELFPAY ==
--- NOTE | 2023-06-26 15:40 | DI.RAD.S_ITS ---
PROCEDURE: XR FOOT RT MIN 3V INDICATIONS: pain TECHNIQUE: 3 views of the foot were acquired. COMPARISON: None. FINDINGS: Bones: No fractures or dislocations. No suspicious bony lesions. Moderate posterior and plantar calcaneal spurs Soft tissues: No tibiotalar joint effusion. Achilles tendon appears normal. IMPRESSION: Calcaneal spurs Approved by: Luc Narvaez M.D. on 06/26/2023 at 19:00
--- NOTE | 2023-06-26 15:40 | DI.RAD.S_ITS ---
PROCEDURE: XR SHOULDER LT MIN 2V INDICATIONS: shoulder pain TECHNIQUE: 3 views of the shoulder were acquired. COMPARISON: [facility], , XR SHOULDER LT MIN 2V, 08/09/2021, 15:02. FINDINGS: Bones: No fractures or dislocations. No suspicious bony lesions. Visualized ribs appear intact. Soft tissues: No suspicious soft tissue calcifications. IMPRESSION: Unremarkable left shoulder radiographs Approved by: Luc Narvaez M.D. on 06/26/2023 at 19:01
== END ==
PROVIDERS: Family Provider Family Medicine; PCP Family Medicine; Referring Provider Anesthesiology; Visit Provider Anesthesiology
DX: M25.512 Pain in left shoulder (principal); M72.2 Plantar fascial fibromatosis; M77.31 Calcaneal spur, right foot
CPT/HCPCS: 73030; 73630

== ENCOUNTER 2023-11-05 09:00 | Outpatient (CLI) | payer OTHER, SELFPAY ==
[2023-11-05] VITALS (9 sets, daily range): BP systolic 106–135; BP diastolic 60–82; PULSE 64–80; RESP 15–18; TEMP 36.6; O2SAT 98–100
[2023-11-05] MEDS: MIDAZOLAM 2 MG/2 ML VIAL IV (09:23)
[2023-11-05] MEDS: DEXAMETHASONE 10 MG/ML VIAL INJ (09:25)
[2023-11-05] MEDS: iopamidoL 15 ML VIAL 3 ML INJ (09:25)
--- NOTE | 2023-11-05 09:30 | DI.RAD.S_ITS ---
PROCEDURE: PAIN L INTERLAMINAR/CAUDAL INJ INDICATIONS: LUMBAR RADICULOPATHY COMPARISON: [facility], XA, PAIN L INTERLAMINAR/CAUDAL INJ, 06/04/2023, 14:54. FINDINGS: Fluoroscopic spot filming was performed to verify placement of spinal needles at the L4-5 level(s), as labeled on the films. Appropriate location(s) of the needle tip(s) was confirmed by injection of iodinated contrast. IMPRESSION: Fluoroscopic guidance utilized for an L4-5 epidural injection. Dictated by: Juan Yao M.D. on 11/05/2023 at 12:43 Approved by: Juan Yao M.D. on 11/05/2023 at 12:43
--- NOTE | 2023-11-05 09:33 | P.PCN_ITS ---
Date/Time/Diagnoses Date of procedure: 11/05/23 Time of procedure: 09:30 Procedure Notes Physician: Mundo Poe Total Fluoroscopy time (seconds): 14 Total sedation minutes: 7 Procedure in detail & Post-procedure care: L4-5 Interlaminar Epidural Steroid Injection Indications: Maxim is presenting for treatment of lumbar radiculopathy with low back and leg pain. Preoperative diagnosis: Lumbar radiculopathy Postoperative diagnosis: Same Focused Examination: Ax3 Mood and affect are normal Vital Signs: VSS ASA: 2 Consent: Following review of allergies and potential side effects/complications, including, but not necessarily limited to, infection, allergic reaction, local tissue breakdown, stroke, temporary or permanent nerve injury, paralysis, and possible , the patient indicated that they understood and agreed to proc eed.? An informed consent document was signed by the patient, witnessed by a nurse and placed in the patient's chart.? Additionally, other treatment options including medications and physical therapy were reviewed with the patient. All questions were answered. Site was then marked. Anesthesia: After review of previous anesthetic history and IV conscious sedation, the patient was deemed safe to proceed with today's procedure with IV conscious sedation. IV sedation was accomplished with midazolam 2 mg administered by the RN after order by Dr. Poe. Sedation was titrated to patient comfort during the course of the procedure. Patient remained responsive to all verbal commands. Position: Prone Monitoring: NIBP, Pulse oximetry, 3 lead EKG Needle used: 18 G 3.5? Tuohy Contrast: Isovue 300M Injectate: Dexamethasone 10 mg with 1% lidocaine 2 mL Technique: The skin was prepped with chloraprep and then draped in a sterile fashion. Time out was performed as per protocol. Oxygen applied via NC. Skin and subcutaneous structures of the needle entry site was then infiltrated with 3 mL of lidocaine 1%. Under AP, lateral and contralateral oblique fluoroscopic control, the Tuohy needle was guided into the L4-5 epidural space. The space was accessed with loss of resistance technique. Isovue 300M was then injected and the spread was consistent with the epidural space. There was no evidence for intravascular or intrathecal uptake. After negative aspiration, the above- mentioned injectate was then slowly administered and the needle withdrawn. The patient expressed no unusual discomfort or paresthesias during the injection. Band-Aids applied to injection sites. EBL: less than 1 ml Complications: None Post Procedure: Patient was taken to the recovery and monitored. The patient was provided a Pain Log to continue to record the patient's response to the target- specific procedure prior to the patient's follow-up visit with the referring physician. Patient was stable upon discharge. Detailed post procedure instructions were provided. Patient was asked to call in the event of worsening pain, fever, weakness, numbness or bladder or bowel incontinence.
== END 2023-11-05 09:56 | disposition home or self-care (01) ==
LOC: RAD 09:02
PROVIDERS: Family Provider Family Medicine; PCP Family Medicine; Referring Provider Anesthesiology; Visit Provider Anesthesiology
DX: M54.16 Radiculopathy, lumbar region (principal)
CPT/HCPCS: 62323; J1100; J2250

== ENCOUNTER → 2023-12-08 14:47 | Outpatient (CLI) | payer OTHER, SELFPAY ==
[2023-12-08 17:17] LABS: Add Manual Diff / Slide Review NO; Basophils Absolute Auto 200 /uL (0-100); Basophils Percent Auto 2.3 % (0-2); Eosinophils Absolute Auto 200 /uL (0-450); Hematocrit 36.2 % (41-53); Lymphocytes Absolute Auto 2300 /uL (1100-4500); Lymphocytes Percent Auto 32.5 % (25-40); Mean Corpuscular HGB Conc 33.2 % (30-36); Mean Corpuscular Hemoglobin 28.5 PG (26-34); Mean Corpuscular Volume 85.7 fL (80-100); Monocytes Absolute Auto 500 /uL (0-900); Monocytes Percent Auto 7.5 % (3-14); Neutrophils Absolute Auto 3800 /uL (1500-7000); Neutrophils Percent Auto 54.7 % (50-75); Platelet Count 287 X10^3/uL (150-400); Red Blood Cell Count 4.22 X10^6/uL (4.5-5.9); Red Cell Distribution Width 14.3 % (11.6-14.8); White Blood Cell Count 6.9 X10^3/uL (4.5-11.0)
[2023-12-08 17:33] LABS: Alanine Aminotransferase 31 IU/L (<50); Albumin 4.4 g/dL (3.5-5.0); Albumin Globulin Ratio 1.2 (1.0-2.8); Alkaline Phosphatase 74 U/L (38-126); Aspartate Aminotransferase 32 IU/L (17-59); BUN Creatinine Ratio 18.3 (6-22); Bilirubin Total 0.7 mg/dL (0.2-1.3); Blood Urea Nitrogen 19 mg/dL (9-20); Calcium 9.5 mg/dL (8.4-10.2); Carbon Dioxide 26 mmol/L (22-32); Chloride 105 mmol/L (98-107); Estimated Glomerular Filt Rate > 60 mL/min (>60); Globulin 3.7 g/dL (1.7-4.1); Glucose 89 mg/dL (70-100); HEMOLYSIS < 15 (0-50); Potassium 3.6 mmol/L (3.4-5.1); Sodium 142 mmol/L (137-145); Total Protein 8.1 g/dL (6.3-8.2)
[2023-12-08 18:07] LABS: Ferritin 100 ng/mL (18-464)
[2023-12-08 20:43] LABS: HEMOLYSIS < 15 (0-50); Iron 119 ug/dL (49-181)
[2023-12-08 20:57] LABS: Percent Iron Saturation 39 % (20-50); Total Iron Binding Capacity 307 ug/dL (261-462)
[2023-12-08 21:16] LABS: TSH w/ Reflex to FT4 0.73 uIU/mL (0.47-4.68)
[2023-12-09 06:59] LABS: Transferrin 260 mg/dL (206-381)
[2023-12-09 11:08] LABS: Hemoglobin A1C% w Est Avg Glu 6.1 % (4.0-6.0)
== END ==
PROVIDERS: Family Provider Family Medicine; PCP Family Medicine; Referring Provider Family Medicine; Visit Provider Family Medicine
DX: R73.03 Prediabetes (principal); D64.9 Anemia, unspecified; E03.9 Hypothyroidism, unspecified; R53.82 Chronic fatigue, unspecified
CPT/HCPCS: 36415; 80053; 82728; 83036; 83540; 83550; 84443; 85025

== ENCOUNTER → 2024-09-13 16:56 | Outpatient (CLI) | payer OTHER, SELFPAY ==
[2024-09-13 18:11] LABS: HEMOLYSIS < 15 (0-50); Iron 89 ug/dL (49-181)
[2024-09-13 18:22] LABS: Percent Iron Saturation 28 % (20-50); Total Iron Binding Capacity 316 ug/dL (261-462); Transferrin 251 mg/dL (206-381)
[2024-09-13 18:47] LABS: Ferritin 55 ng/mL (18-464)
== END ==
PROVIDERS: Family Provider Family Medicine; PCP Family Medicine; Referring Provider Family Medicine; Visit Provider Family Medicine
DX: R73.9 Hyperglycemia, unspecified (principal); M47.816 Spondylosis without myelopathy or radiculopathy, lumbar region; M54.50 Low back pain, unspecified; M54.9 Dorsalgia, unspecified; E03.9 Hypothyroidism, unspecified; M54.16 Radiculopathy, lumbar region; G89.29 Other chronic pain
CPT/HCPCS: 36415; 82728; 83540; 83550

== ENCOUNTER 2024-09-28 14:34 | Outpatient (CLI) | payer OTHER, SELFPAY ==
[2024-09-28] VITALS (12 sets, daily range): BP systolic 123–153; BP diastolic 72–90; PULSE 73–84; RESP 10–21; TEMP 36.7; O2SAT 99–100
--- NOTE | 2024-09-28 14:35 | DI.RAD.S_ITS ---
PROCEDURE: PAIN L/S TRANSFORAM INJECT DIRK COMPARISON: None. INDICATIONS: BILATERAL L4/5 TF MIKALA FINDINGS: Needle placement at the bilateral L4-L5 levels. IMPRESSION: Intraoperative guidance provided. Dictated by: Thomas Willams M.D. on 09/28/2024 at 21:26 Approved by: Thomas Willams M.D. on 09/28/2024 at 21:28
[2024-09-28] MEDS: MIDAZOLAM 2 MG/2 ML VIAL IV (15:44)
[2024-09-28] MEDS: DEXAMETHASONE 10 MG/ML VIAL 20 MG INJ (15:49)
[2024-09-28] MEDS: iopamidoL 15 ML VIAL 3 ML INJ (15:49)
[2024-09-28] MEDS: BETAMETHASONE 30 MG/5 ML MDV 12 MG INJ (15:49)
[2024-09-28] MEDS: BUPIVACAINE 0.25% (PF) VIAL 2 ML INJ (15:49)
[2024-09-28] MEDS: MIDAZOLAM 5 MG/ML VIAL 1 MG IV (15:52)
--- NOTE | 2024-09-28 16:09 | PM.PROC.IR.1 ---
Date/Time/Diagnoses Date of procedure: 09/28/24 Time of procedure: 16:09 Pre-procedure diagnosis: 1. FORAMINAL STENOSIS WITH LE SYMPTOMS Procedure Notes Procedure: 1. FLUOROSCOPICALLY GUIDED CONTRAST CONTROLLED TRANSFORAMINAL EPIDURAL STEROID INJECTION - BILATERAL L4/5 TFESI Indications: Maxim is referred by Dr. Levi for treatment of Foraminal Stenosis with bilateral LE Symptoms Physician: Campbell Gutierrez Total Fluoroscopy time (seconds): 22 Total sedation minutes: 16 Complications: none Procedure in detail & Post-procedure care: FINDINGS Foraminal Nerve Root Compression secondary to disc disease and facet hypertrophy DESCRIPTION OF PROCEDURE Following review of allergy and review of potential side effects and complications, including, but not necessarily limited to, infection, allergic reaction, local tissue breakdown, stroke, temporary or permanent nerve injury, paralysis, and possible , the patient indicated that the patient understood and agreed to proceed. An informed consent document was signed by the patient, witnessed by a nurse, and placed in the patient's chart. Additionally, other treatment options including medications, modalities, and physical therapy were reviewed with the patient. After review of previous anaesthesic history and IV conscious sedation the patient was deemed safe to proceed with today?s procedure with IV conscious sedation as ASA class II designation. Safety time-out was performed to confirm patient ID, procedure to be performed and site of procedure. IV sedation was accomplished with a combination of 3mg of Versed was administered by the RN after DO order, titrated to patient comfort during the course of the procedure while the patient remained responsive to all verbal commands In the prone position following sterile prep and drape of the lumbar region, the right L4/5 posterior neuroforamen was identified fluoroscopically. The skin was anesthetized via a 25-gauge 1.5-inch needle with 1% lidocaine solution. At this point, a 25-gauge 3.5-inch spinal needle was atraumatically introduced and advanced under fluoroscopic guidance through the posterior right L4/5 neuroforamen to approximately the anterior aspect of the canal. Depth was confirmed on lateral view. Following negative aspiration, injection of approximately 1.5cc of Isovue 200 under live fluoroscopy in the AP view confirmed excellent flow along the nerve root, into the epidural space without vascular or intrathecal uptake observed Radiological data, including multiple fluoroscopic views of the lumbosacral spine, reveal a spinal needle at the right L4/5 posterior neuroforamen. Subsequent views show flow of contrast material flowing superiorly and inferiorly along the nerve root confirming epidural flow. Subsequently, a test dose of 1.5cc of 1% lidocaine solution was administered and patient was observed for two minutes for signs or symptoms of complications, including abdominal pain, shortness of breath, bilateral upper or lower extremity weakness, nausea and vomiting, prior to steroid injection. At this point, a total of 2cc or 10mg of dexamethasone and 6mg betamethasone was injected without incident. Attention was then refocused to the left L4/5 level where the identical procedure was replicated. The procedure tolerated the procedure well without signs or symptoms of complications prior to transfer to the recovery area continued monitoring without incident. The patient was then transferred to the recovery area where they were observed for an appropriate time after the injection. The patient reported a VAS score of 7 prior to the procedure and a post-procedure VAS of 0. POST OP INSTRUCTIONS The patient was provided a Pain Log to continue to record their response to the target-specific procedure prior to follow-up visit with their referring physician. Additionally, specific post-injection care instructions and a contact number to our office were provided if concerns arise regarding possible complications associated with the procedure are suspected.
== END 2024-09-28 16:30 | disposition home or self-care (01) ==
PROVIDERS: Family Provider Family Medicine; PCP Family Medicine; Referring Provider Physical Medicine & Rehabilitation; Visit Provider Physical Medicine & Rehabilitation
DX: M48.061 Spinal stenosis, lumbar region without neurogenic claudication (principal); M51.16 Intervertebral disc disorders with radiculopathy, lumbar region; M47.26 Other spondylosis with radiculopathy, lumbar region
CPT/HCPCS: 64483; 99152; J0702; J1100; J2250; J3490

== ENCOUNTER → 2024-11-16 14:20 | Outpatient (CLI) | payer OTHER, SELFPAY ==
--- NOTE | 2024-11-16 14:21 | DI.RAD.S_ITS ---
PROCEDURE: XR HAND RT MIN 3V INDICATIONS: right hand pain TECHNIQUE: 3 views of the hand(s) acquired. COMPARISON: None. FINDINGS: Bones: No fractures or dislocations. Carpal bones are normally aligned. No suspicious bony lesions. Interphalangeal joint space narrowing with osteophytosis. 1st CMC joint space narrowing with associated osteophytosis and sclerosis. Soft tissues: No suspicious soft tissue calcifications. 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 Dictated by: Juan Yao M.D. on 11/18/2024 at 10:20 Approved by: Juan Yao M.D. on 11/18/2024 at 10:21
== END ==
PROVIDERS: Family Provider Family Medicine; PCP Family Medicine; Referring Provider Family Medicine; Visit Provider Family Medicine
DX: M18.11 Unilateral primary osteoarthritis of first carpometacarpal joint, right hand (principal); M19.041 Primary osteoarthritis, right hand; M79.641 Pain in right hand
CPT/HCPCS: 73130

== ENCOUNTER → 2024-11-30 07:53 | Outpatient (CLI) | payer OTHER, SELFPAY ==
[2024-11-30 08:18] LABS: Add Manual Diff / Slide Review NO; Basophils Absolute Auto 200 /uL (0-100); Basophils Percent Auto 2.8 % (0-2); Eosinophils Absolute Auto 500 /uL (0-450); Eosinophils Percent Auto 8.3 % (2-4); Hemoglobin 12.4 g/dL (13.5-17.5); Lymphocytes Absolute Auto 1900 /uL (1100-4500); Mean Corpuscular HGB Conc 32.6 % (30-36); Mean Corpuscular Hemoglobin 28.8 PG (26-34); Mean Corpuscular Volume 88.5 fL (80-100); Monocytes Absolute Auto 500 /uL (0-900); Monocytes Percent Auto 7.3 % (3-14); Neutrophils Absolute Auto 3600 /uL (1500-7000); Neutrophils Percent Auto 53.6 % (50-75); Platelet Count 179 X10^3/uL (150-400); Red Blood Cell Count 4.29 X10^6/uL (4.5-5.9); Red Cell Distribution Width 14.5 % (11.6-14.8); White Blood Cell Count 6.6 X10^3/uL (4.5-11.0)
[2024-11-30 09:25] LABS: Creatinine Urine Random 183.33 mg/dL
[2024-11-30 09:25] LABS: Alanine Aminotransferase 23 IU/L (<50); Albumin 4.5 g/dL (3.5-5.0); Albumin Globulin Ratio 1.6 (1.0-2.8); Alkaline Phosphatase 69 U/L (38-126); Aspartate Aminotransferase 28 IU/L (17-59); BUN Creatinine Ratio 18.4 (6-22); Bilirubin Total 0.6 mg/dL (0.2-1.3); Blood Urea Nitrogen 21 mg/dL (9-20); Calcium 8.9 mg/dL (8.4-10.2); Carbon Dioxide 25 mmol/L (22-32); Chloride 108 mmol/L (98-107); Cholesterol 176 mg/dL (140-199); Estimated Glomerular Filt Rate > 60 mL/min (>60); Globulin 2.8 g/dL (1.7-4.1); Glucose 116 mg/dL (70-100); HDL Cholesterol 60 mg/dL (40-60); HEMOLYSIS < 15 (0-50); LDL Cholesterol Calculated 104 mg/dL (<100); Potassium 4.1 mmol/L (3.4-5.1); Sodium 140 mmol/L (137-145); Total Protein 7.3 g/dL (6.3-8.2); Triglycerides 62 mg/dL (35-150)
[2024-11-30 09:30] LABS: Microalbumin Urine Random 3.4 mg/dL (0-1.6)
[2024-11-30 10:14] LABS: Vitamin B12 492 pg/mL (239-931)
[2024-11-30 10:56] LABS: Free T4, Direct Thyroxine 0.79 ng/dL (0.78-2.19)
== END ==
PROVIDERS: Family Provider Family Medicine; PCP Family Medicine; Referring Provider Family Medicine; Visit Provider Family Medicine
DX: R73.9 Hyperglycemia, unspecified (principal); M47.816 Spondylosis without myelopathy or radiculopathy, lumbar region; M54.50 Low back pain, unspecified; M54.16 Radiculopathy, lumbar region; E03.9 Hypothyroidism, unspecified; M54.9 Dorsalgia, unspecified; G89.29 Other chronic pain
CPT/HCPCS: 36415; 80053; 80061; 82043; 82570; 82607; 84439; 84443; 85025

== ENCOUNTER → 2025-03-02 16:51 | Outpatient (CLI) | payer OTHER, SELFPAY ==
[2025-03-02 17:14] LABS: Add Manual Diff / Slide Review NO; Basophils Absolute Auto 200 /uL (0-100); Basophils Percent Auto 2.3 % (0-2); Eosinophils Absolute Auto 300 /uL (0-450); Eosinophils Percent Auto 3.9 % (2-4); Hematocrit 35.9 % (41-53); Hemoglobin 11.9 g/dL (13.5-17.5); Lymphocytes Absolute Auto 1700 /uL (1100-4500); Lymphocytes Percent Auto 22.8 % (25-40); Mean Corpuscular HGB Conc 33.1 % (30-36); Mean Corpuscular Hemoglobin 29.2 PG (26-34); Mean Corpuscular Volume 88.3 fL (80-100); Monocytes Absolute Auto 600 /uL (0-900); Monocytes Percent Auto 8.1 % (3-14); Neutrophils Absolute Auto 4800 /uL (1500-7000); Neutrophils Percent Auto 62.9 % (50-75); Platelet Count 225 X10^3/uL (150-400); Red Blood Cell Count 4.07 X10^6/uL (4.5-5.9); Red Cell Distribution Width 13.4 % (11.6-14.8); White Blood Cell Count 7.6 X10^3/uL (4.5-11.0)
[2025-03-02 17:59] LABS: TSH w/ Reflex to FT4 0.86 uIU/mL (0.47-4.68)
== END ==
PROVIDERS: Family Provider Family Medicine; PCP Family Medicine; Referring Provider Physician Assistant; Visit Provider Physician Assistant
DX: R79.89 Other specified abnormal findings of blood chemistry (principal); R59.0 Localized enlarged lymph nodes
CPT/HCPCS: 36415; 84443; 85025

== ENCOUNTER → 2025-03-14 15:29 | Outpatient (CLI) | payer OTHER, SELFPAY ==
--- NOTE | 2025-03-14 15:31 | DI.US.S_ITS ---
PROCEDURE: US AXILLARY ONLY LT COMPARISON: None. INDICATIONS: left axillary node - approx 1cm in size; former smoker FINDINGS: Multiple grayscale and color Doppler images of the left axilla were acquired over the palpable area of patient concern. There is an intradermal hypoechoic mass measuring approximately 0.7 x 0.5 x 0.4 cm. No associated vascularity. The skin is otherwise unremarkable. No abnormal fluid collection seen. No suspicious vascularity or suspicious mass lesions. IMPRESSION: A 0.7 cm intradermal hypoechoic mass in the left axillary region most consistent with a sebaceous cyst. Recommend clinical surveillance and follow-up imaging as necessary. Dictated by: Rosendo Barker M.D. on 03/14/2025 at 16:04 Approved by: Rosendo Barker M.D. on 03/14/2025 at 16:06
== END ==
LOC: US 15:31
PROVIDERS: Family Provider Family Medicine; PCP Family Medicine; Referring Provider Physician Assistant; Visit Provider Physician Assistant
DX: R59.0 Localized enlarged lymph nodes (principal); R22.32 Localized swelling, mass and lump, left upper limb; Z87.891 Personal history of nicotine dependence
CPT/HCPCS: 76882

== ENCOUNTER 2025-08-11 17:45 | Emergency (ER) | payer OTHER, SELFPAY ==
[2025-08-11 17:46] VITALS: BP 139/83; PULSE 62; RESP 16; TEMP 37.2; O2SAT 98; BMI 30.3
--- NOTE | 2025-08-11 19:07 | DI.RAD.S_ITS ---
PROCEDURE: XR HIP W PEL IF DONE RT 2V INDICATIONS: hip pain TECHNIQUE: 2 views of the hip were acquired. COMPARISON: None. FINDINGS: Bones: There is are tonic alignment. There is an ill-defined lucency in the right intertrochanteric region laterally. There is mild diffuse osteopenia Soft tissues: No suspicious soft tissue calcifications or masses. IMPRESSION: Possible lytic lesion in the right intertrochanteric region laterally, can be further assessed with CT or MRI. Dictated by: Reynaldo Cavanaugh M.D. on 08/11/2025 at 20:01 Approved by: Reynaldo Cavanaugh M.D. on 08/11/2025 at 20:03
--- NOTE | 2025-08-11 19:08 | ED_ITS ---
HPI - Extremity Problem General Chief complaint: Extremity Problem,Nontraumatic Stated complaint: R leg/hip pn Time Seen by Provider: 08/11/25 19:06 Source: patient Mode of arrival: Family Vehicle History of Present Illness HPI Narrative: 60-year-old male history of hypothyroidism 2 neck fusion chronic pain on back feet and wrist presents for evaluation of right-sided hip back pain radiating down to the ankle started yesterday. He does not recall any inciting event that caused all this. He denies any abdominal pain, nausea, vomiting, rectal bleeding, bowel or bladder incontinence, recent heavy lifting, or trauma to the area. Nothing makes it better or worse. Other than what is stated 14 point review of system is negative. Related Data Previous Rx's ?Medication ?Instructions ?Recorded topiramate 50 mg tablet 150 mg (3 x 50 mg) PO .COMPL EX 12/30/24 #270 tabs levothyroxine 137 mcg tablet 137 mcg PO DAILY #90 tabs 01/12/25 meloxicam 15 mg tablet 15 mg PO DAILY #60 tabs 04/10 tramadol 50 mg tablet 50 mg PO Q8H PRN pain #60 ta bs 06/14/25 diclofenac sodium 75 mg 75 mg PO BID #30 tabs tablet,delayed release Allergies Allergy/AdvReac Type Severity Reaction Status Date / Time gabapentin AdvReac Intermediate Dizziness Verified 08/11/25 17:46 Review of Systems Review of Systems ROS Unobtainable: All systems reviewed & are unremarkable except as noted in HPI and below Patient History Medical History Hyperglycemia Left shoulder pain Right foot pain Lumbar spondylosis Low back pain Lumbar radiculopathy Protrusion of lumbar intervertebral disc Pityriasis versicolor Reduced active range of joint movement Chronic left shoulder pain Bilateral carpal tunnel syndrome Ulnar nerve entrapment at right elbow Sprain of left shoulder Migraine Cervical spondylosis Cervical stenosis of spine Hypothyroidism Chronic back pain Chronic knee pain Fatigue (~10/2018) Obstructive sleep apnea Laceration of finger of right hand Flexor tendon laceration of right hand with open wound Surgical History S/P cervical spinal fusion alcohol intake frequency: 0-2 drinks per day Exam Narrative Exam Narrative: GENERAL: [60] year old patient appears stated age. Well-developed patient, in mild distress. HEAD: Atraumatic. Normocephalic. EYES: Pupils equal round and reactive. Extraocular motions intact. No scleral icterus. No injection or drainage. ENT: Nose without bleeding, purulent drainage. Throat without erythema, tonsillar hypertrophy or exudate. Airway patent. NECK: Trachea midline. Non tender CARDIOVASCULAR: Regular rate and rhythm without murmurs, gallops, or rubs. RESPIRATORY: Clear to auscultation. Breath sounds equal bilaterally. No wheezes, rales, or rhonchi. GASTROINTESTINAL: Abdomen soft, non-tender, nondistended. EXTREMITIES: No edema or joint tenderness. BACK: Nontender without deformity or crepitance. No flank tenderness. NEURO: AOx3. SKIN: No rash or erythema of visible areas Initial Vital Signs Initial Vital Signs: Vital Signs Temperature 99.0 F 08/11/25 17:46 Pulse Rate 62 08/11/25 17:46 Respiratory Rate 16 08/11/25 17:46 Blood Pressure 139/83 08/11/25 17:46 Pulse Oximetry 98 08/11/25 17:46 Oxygen Delivery Method Room Air 08/11/25 17:46 [place] [facility] [place] Procedure: Right back trigger point steroid injection Side (if applicable): right Time out performed: Yes Technique/Description of procedure performed: Patient draped and prepped in a sterile fashion. Using 20-1-1/2 gauge needle 5 cc syringe with Kenalog 40 mg 1 mL and 2% lidocaine without epi 9 mL. Patient was injected paralumbar sacral region L4 (3ml) -L5 (3ml) S1 (4ml) for which he tolerated procedure with no complications and feels much better. Patient tolerated procedure: Well and No complications Complications: none Course Orders Ordered: ED Orders 08/11/25 19:07 XR hip w pel LT 2V Stat 08/11/25 20:15 Ct Hip right without con Stat Discontinued Medications Acetaminophen (Acetaminophen 325 Mg Tablet) 650 mg PO NOW ONE Stop: 08/11/25 19:09 Last Admin: 08/11/25 19:13 Dose: 650 mg Documented By: UMM Ibuprofen (Ibuprofen 400 Mg Tablet) 800 mg PO NOW ONE Stop: 08/11/25 19:45 Last Admin: 08/11/25 19:55 Dose: 800 mg Documented By: GUZMAN Lidocaine HCl (Lidocaine 2% Inj Mdv 20ml) 20 ml INJ INTRA-OP ONE Stop: 08/11/25 19:45 Last Admin: 08/11/25 19:56 Dose: 20 ml Documented By: GUZMAN Triamcinolone (Triamcinolone 40 Mg/Ml Vial) 40 mg INJ NOW ONE Stop: 08/11/25 19:45 Last Admin: 08/11/25 19:56 Dose: 40 mg Documented By: GUZMAN Vital Signs Vital signs: Vital Signs - 8 hr 08/11/25 17:46 Temperature 99.0 F Pulse Rate 62 Respiratory Rate 16 Blood Pressure 139/83 Pulse Oximetry 98 Oxygen Delivery Method Room Air MDM - Extremity (Nontraumatic) Imaging Data Extremity x-ray #2: Radiologist's Impression: [address] [address] [address] Scan Report Signed Patient: Maxim Garcia MR#: [id number] : 1965 Acct:[id number] Age/Sex: 60 / M Date of Service: 08/11/25 Loc: ED Accession Number: [id number] Procedure: Ct Hip right without con Ordering Provider: Bobby Artis D.O. PROCEDURE: CT HIP RIGHT WITHOUT CON INDICATIONS: lytic lesion xray recommendation TECHNIQUE: Noncontrast 3 mm axial sections acquired through the bony pelvis, with coronal and sagittal reformatting. COMPARISON: Same-day hip radiographs 08/11/2025. FINDINGS: Image quality: Diagnostic Bones: No acute fracture or dislocation. No suspicious osseous lesion, specifically no lytic lesion in the right intertrochanteric region. Soft tissues: No soft tissue abnormality. Visualized pelvic organs are unremarkable on this noncontrast exam. Prostate is mildly enlarged. IMPRESSION: No acute osseous abnormality. Specifically no lytic lesion visualized on CT as clinically queried. If symptoms persist with conservative management, consider further evaluation with MRI. Approved by: Sienna Pennington M.D.,Ph.D. on 08/11/2025 at 21:23 [facility] Narrative Medical decision making narrative: Vital signs, nurse triage note, medication list, previous ER visits, and all imaging studies reviewed. X-ray showed possible lytic lesion a right intertrochanteric laterally can be further assessed with CT or MR. Hip CT showed no acute Osseous or abnormality specifically no lytic lesion on CT. DC home on diclofenac prescription. Differential diagnosis includes osteoarthritis,, spondylolysis, spondylosis, spondylolisthesis, piriformis syndrome, sciatica. Discharge Plan Departure Patient Disposition: Home Clinical Impression: Low back pain Instructions: DI for Low Back Pain Activity Restrictions/Additional Instructions: Return with new or worsening symptoms. Take your medicine directed. Follow up with PCP in 1-2 weeks if no improvement in symptoms. Prescriptions: New diclofenac sodium 75 mg tablet,delayed release (DR/EC) 75 mg PO BID Qty: 30 0RF No Action topiramate 50 mg tablet 150 mg PO .COMPLEX Qty: 270 3RF Rx Instructions: 3 tabs in the am. levothyroxine 137 mcg tablet 137 mcg PO DAILY MDD 137mcg Qty: 90 3RF Rx Instructions: Take one tablet by mouth once daily meloxicam 15 mg tablet 15 mg PO DAILY Qty: 60 2RF tramadol 50 mg tablet 50 mg PO Q8H PRN (Reason: pain) Qty: 60 1RF Referrals: Alvin Levi MD [Primary Care Provider, Family Practice] Stand Alone Forms: Patient Portal/API
[2025-08-11] MEDS: ACETAMINOPHEN 325 MG TABLET 650 MG PO (19:13)
--- NOTE | 2025-08-11 19:30 | PC.NURSE ---
right hip pain that radiates down leg pt ambulates without difficulty
[2025-08-11] MEDS: IBUPROFEN 400 MG TABLET 800 MG PO (19:55)
[2025-08-11] MEDS: LIDOCAINE 2% INJ MDV 20ML 20 ML INJ (19:56)
[2025-08-11] MEDS: TRIAMCINOLONE 40 MG/ML VIAL INJ (19:56)
--- NOTE | 2025-08-11 20:15 | DI.CT.S_ITS ---
PROCEDURE: CT HIP RIGHT WITHOUT CON INDICATIONS: lytic lesion xray recommendation TECHNIQUE: Noncontrast 3 mm axial sections acquired through the bony pelvis, with coronal and sagittal reformatting. COMPARISON: Same-day hip radiographs 08/11/2025. FINDINGS: Image quality: Diagnostic Bones: No acute fracture or dislocation. No suspicious osseous lesion, specifically no lytic lesion in the right intertrochanteric region. Soft tissues: No soft tissue abnormality. Visualized pelvic organs are unremarkable on this noncontrast exam. Prostate is mildly enlarged. IMPRESSION: No acute osseous abnormality. Specifically no lytic lesion visualized on CT as clinically queried. If symptoms persist with conservative management, consider further evaluation with MRI. Approved by: Sienna Pennington M.D.,Ph.D. on 08/11/2025 at 21:23
[2025-08-11 21:50] VITALS: BP 136/80; PULSE 62; RESP 16; O2SAT 98
== END 2025-08-11 21:54 | disposition home or self-care (01) ==
PROVIDERS: Emergency Provider Family Medicine; PCP Family Medicine
DX: M54.50 Low back pain, unspecified (principal)
CPT/HCPCS: 20553; 73502; 73700; 99283; 99284

== ENCOUNTER → 2025-08-24 15:17 | Outpatient (CLI) | payer OTHER, SELFPAY ==
--- NOTE | 2025-08-24 15:19 | DI.RAD.S_ITS ---
PROCEDURE: XR CERVICAL SPINE 2V OR 3V INDICATIONS: neck pain TECHNIQUE: 3 view(s) of the cervical spine were acquired. COMPARISON: None. FINDINGS: C4-C7 osseous fusion. Plate and screw at C4-C6. Mild degenerative change at the C1-C2, C2-C3 and C3-C4 level. No fracture or vertebral body height loss. Prevertebral soft tissues are unremarkable. IMPRESSION: Spondylosis Dictated by: Marco Antonio Gilmore M.D. on 08/25/2025 at 13:22 Approved by: Marco Antonio Gilmore M.D. on 08/25/2025 at 13:25
--- NOTE | 2025-08-24 15:19 | DI.RAD.S_ITS ---
PROCEDURE: XR LUMBAR SPINE 2-3V INDICATIONS: low back pain with radiculopathy TECHNIQUE: 3 views of the lumbar spine were acquired. COMPARISON: [facility], CR, XR LUMBAR SPINE 2-3V, 03/20/2023, 9:38. FINDINGS: Multilevel degenerative disc disease and facet arthropathy with preserved vertebral body height and alignment. Moderate left greater than right sacroiliac degenerative change. No fracture or aggressive osseous lesion. IMPRESSION: [id number] spondylosis. Dictated by: Marco Antonio Gilmore M.D. on 08/25/2025 at 13:25 Approved by: Marco Antonio Gilmore M.D. on 08/25/2025 at 13:26
== END ==
PROVIDERS: PCP Family Medicine; Referring Provider Family Medicine; Visit Provider Family Medicine
DX: M47.812 Spondylosis without myelopathy or radiculopathy, cervical region (principal); M48.02 Spinal stenosis, cervical region; M51.16 Intervertebral disc disorders with radiculopathy, lumbar region; M47.26 Other spondylosis with radiculopathy, lumbar region; M47.818 Spondylosis without myelopathy or radiculopathy, sacral and sacrococcygeal region; M54.50 Low back pain, unspecified; G89.29 Other chronic pain
CPT/HCPCS: 72040; 72100

== ENCOUNTER → 2025-09-29 15:57 | Outpatient (CLI) | payer OTHER, SELFPAY ==
[2025-09-29 17:10] LABS: Add Manual Diff / Slide Review NO; Hematocrit 37.3 % (41-53); Hemoglobin 12.1 g/dL (13.5-17.5); Lymphocytes Absolute Auto 1800 /uL (1100-4500); Mean Corpuscular HGB Conc 32.5 % (30-36); Mean Corpuscular Hemoglobin 28.6 PG (26-34); Mean Corpuscular Volume 87.9 fL (80-100); Platelet Count 210 X10^3/uL (150-400)
[2025-09-29 17:27] LABS: HEMOLYSIS < 15 (0-50); Iron 122 ug/dL (49-181)
[2025-09-29 17:29] LABS: Alanine Aminotransferase 23 IU/L (<50); Albumin 4.8 g/dL (3.5-5.0); Albumin Globulin Ratio 1.5 (1.0-2.8); Alkaline Phosphatase 71 U/L (38-126); Blood Urea Nitrogen 24 mg/dL (9-20); Calcium 9.8 mg/dL (8.4-10.2); Carbon Dioxide 23 mmol/L (22-32); Chloride 108 mmol/L (98-107); Estimated Glomerular Filt Rate > 60 mL/min (>60); Globulin 3.2 g/dL (1.7-4.1); Glucose 103 mg/dL (70-99); HEMOLYSIS < 15 (0-50); Potassium 4.8 mmol/L (3.4-5.1); Sodium 145 mmol/L (137-145); Total Protein 8.0 g/dL (6.3-8.2)
[2025-09-29 17:39] LABS: Percent Iron Saturation 36 % (20-50); Total Iron Binding Capacity 339 ug/dL (261-462); Transferrin 292 mg/dL (206-381)
[2025-09-29 17:59] LABS: TSH w/ Reflex to FT4 12.50 uIU/mL (0.47-4.68)
[2025-09-29 18:05] LABS: Ferritin 59 ng/mL (18-464)
[2025-09-29 18:51] LABS: Free T4, Direct Thyroxine 1.07 ng/dL (0.78-2.19)
== END ==
PROVIDERS: PCP Family Medicine; Referring Provider Family Medicine; Visit Provider Family Medicine
DX: E03.9 Hypothyroidism, unspecified (principal); R53.82 Chronic fatigue, unspecified; R07.9 Chest pain, unspecified; D64.9 Anemia, unspecified
CPT/HCPCS: 71046; 80053; 82728; 83540; 83550; 84439; 84443; 85025

== ENCOUNTER → 2025-11-08 07:47 | Outpatient (CLI) | payer OTHER, SELFPAY ==
--- NOTE | 2025-11-08 07:48 | DI.NM.S_ITS ---
PROCEDURE: NM KATIANA PERF SPECT REST & STR Rest and exercise myocardial perfusion SPECT with gated imaging and ejection fraction RADIOPHARMACEUTICAL: 12.6 mCi Tc-99m sestamibi IV at rest and 25.8 mCi Tc-99m sestamibi IV at peak exercise. A one day-protocol was performed. INDICATIONS: left-sided chest pain TECHNIQUE: Radiopharmaceutical was injected at peak stress test, and also at rest. SPECT images were obtained. SPECT myocardial perfusion images were displayed in short axis, horizontal long axis, and vertical long axis views. Gated images were reviewed using Aligo software. COMPARISON: None. CARDIAC STRESS: A standard [place] treadmill exercise tolerance test was performed by the patient under the supervision of an attending staff. The patient exercised for 8 minutes and 0 seconds; functional aerobic impairment (TAVO) is -1%. Hemodynamic data: There is normal blood pressure and heart rate response to exercise stress. Patient achieved 102% of maximum predicted heart rate at peak exercise. Symptoms: Patient denied chest pain during exercise. EKG: Mild horizontal ST depressions in the anterolateral leads during recovery; occasional PVCs present. FINDINGS: Raw data: There is good myocardial labeling by radiotracer. No significant motion artifacts. Tudb-ig-bijeu ratio is 0.34 (normal is less than 0.38 for sestamibi tracer, and less than 0.50 for thallium tracer). Left ventricle function: Gated images demonstrate normal left ventricle wall thickening. No segmental wall motion abnormality. No transient ischemic dilation; TID is 0.84 (normal less than 1.3). The left ventricle resting end-diastolic volume is 163mL. Left ventricle stress ejection fraction is 64%; normal values are above 45%. Myocardial perfusion: There is a mildly intense fixed apical defect that is probably apical thinning artifact, but old non-transmural infarction can't be excluded. No ischemia. SSS 2. No prone images available. IMPRESSION: Low risk, probably normal treadmill nuclear stress test from inducible ischemia standpoint. 1) There is a mildly intense fixed apical defect that is probably apical thinning artifact, but old non-transmural infarction can't be excluded. No ischemia. SSS 2. No prone images available. 2) Mildly enlarged left ventricle (resting EDV 163cc) with normal wall motion and normal systolic function (EF post stress 64%). 3) No angina during the study. 4) Mild horizontal ST depressions in the anterolateral leads during recovery. 5) Average exercise capacity (10.1Mets, TAVO -1%). Target heart rate reached. Appropriate BP response to exercise. 6) No prior nuclear stress test available for comparison. Dictated by: Freddy Sosa MD on 11/08/2025 at 16:44 Approved by: Freddy Sosa MD on 11/08/2025 at 16:48
== END ==
LOC: NUCM 07:47
PROVIDERS: PCP Family Medicine; Referring Provider Family Medicine; Visit Provider Family Medicine
DX: R07.9 Chest pain, unspecified (principal); R53.82 Chronic fatigue, unspecified
CPT/HCPCS: 78452; 93017; A9502